=== PATIENT | female | born 1970 | race Caucasian/White ===

== ENCOUNTER 2022-10-15 17:13 | Emergency (ER) | payer OTHER, SELFPAY ==
[2022-10-15] VITALS (15 sets, daily range): BP systolic 126–141; BP diastolic 79–97; PULSE 65–107; RESP 16; TEMP 36.2; O2SAT 99–100; BMI 37.1
--- NOTE | 2022-10-15 18:51 | ED.GENADULT ---
HPI - General Adult General Chief complaint: Chest Pain <Sandor Sánchez MD - Last Filed: 10/19/22 11:50> Stated complaint: Chest pain on upper right side <Sandor Sánchez MD - Last Filed: 10/19/22 11:50> Time Seen by Provider: 10/15/22 17:17 <Sandor Sánchez MD - Last Filed: 10/19/22 11:50> Source: patient <Sandor Sánchez MD - Last Filed: 10/19/22 11:50> History of Present Illness HPI narrative: Patient is a 52-year-old woman here for evaluation of right-sided chest pain. She says last week she developed some pain near the right scapula which she thought was muscular. She was using a tennis ball rule that out. On Saturday, 2 days ago, she developed some pain in the right chest which she initially did not think too much about. It was intermittent, not bothering her very much. Earlier today it seemed to get a little more persistent, and by this afternoon it was steady. It is mild in intensity, she has not needed anything for pain. It is a little bit pleuritic although she has not felt short of breath. It does bother her more when she sits straight up. It is not worsened by exertion. She is concerned because her mother of pulmonary embolism. She does have a protein C deficiency. She was on Eliquis after a hip replacement a couple of years ago but does not generally maintain on blood thinners. Her left foot has felt numb on and off today but she has not noted any other unusual leg pain or swelling. No fevers or cough. General health is otherwise good. She does not smoke, rare alcohol. <Sandor Sánchez MD - Last Filed: 10/19/22 11:50> Related Data Home medications: Home Medications Medication Instructions Recorded Confirmed diphenhydramine HCl 25 mg tablet 25 mg PO QHS 10/15/22 10/15/22 (Banophen) melatonin 3 mg capsule 3 mg PO DAILY 10/15/22 10/15/22 <Sandor Sánchez MD - Last Filed: 10/19/22 11:50> Allergies/adverse reactions: Allergies Allergy/AdvReac Type Severity Reaction Status Date / Time bacitracin Allergy Intermediate Rash Verified 10/15/22 17:49 [From Neosporin ([id number])] neomycin Allergy Intermediate Rash Verified 10/15/22 17:49 [From Neosporin ([id number])] polymyxin B Allergy Intermediate Rash Verified 10/15/22 17:49 [From Neosporin (fgy-[id number])] ibuprofen Allergy Mild Hypertensio Verified 10/15/22 17:49 n Opioids - Morphine Analogues Allergy Mild Nausea Verified 10/15/22 17:49 pseudoephedrine Allergy Mild Numbness Verified 10/15/22 17:49 nickel Allergy Mild Rash Uncoded 10/15/22 17:49 <Sandor Sánchez MD - Last Filed: 10/19/22 11:50> Review of Systems Status of ROS: Reports: 10 or more systems reviewed and unremarkable except as noted in History and below <Sandor Sánchez MD - Last Filed: 10/19/22 11:50> PFSH PFSH Social History: Social History Smoking Status: Never smoker Non-prescribed substance use: denies use service: No <Sandor Sánchez MD - Last Filed: 10/19/22 11:50> Exam Narrative: Exam Narrative: Vital signs as noted above. In general, an alert, well-appearing patient. Head: Normocephalic, atraumatic. Eyes: Pupils are equal reactive. Extraocular movements are full. Conjunctivae are normal. ENT: Mucous membranes are moist. Throat is normal. Neck: Supple without lymphadenopathy. Heart: Regular rate and rhythm. No murmur or rub. Lungs: Clear bilaterally. No increased work of breathing, crackles or wheezes. Chest wall is nontender to palpation. No rash. Back: She has reproducible muscular tenderness around the scapula on the right. Abdomen: Soft and nontender. No organomegaly. Extremities: Well perfused. No edema. No calf tenderness. Pulses intact. Neurologic: Patient is alert and oriented to person and place. Speech is fluent. Face is symmetric. Moves all extremities equally. Affect: Normal. Skin: Warm and dry. Well perfused. <Sandor Sánchez MD - Last Filed: 10/19/22 11:50> Const: Vital Signs, click to edit/add: Vital Signs - 24 hr 10/15/22 17:51 10/15/22 18:20 10/15/22 18:30 Temperature 97.1 F L Pulse Rate 66 69 Pulse Rate [Right Pulse Oximeter] 107 H Respiratory Rate 16 Blood Pressure Blood Pressure [Ri ght Upper Arm] 134/97 H Pulse Oximetry 99 99 Oxygen Delivery Me thod Room Air 10/15/22 18:32 10/15/22 18:33 10/15/22 19:05 Temperature Pulse Rate 67 65 71 Pulse Rate [Right Pulse Oximeter] Respiratory Rate Blood Pressure 126/79 Blood Pressure [Ri ght Upper Arm] Pulse Oximetry 99 99 99 Oxygen Delivery Me thod Room Air 10/15/22 19:06 10/15/22 19:30 10/15/22 19:32 Temperature Pulse Rate 69 73 68 Pulse Rate [Right Pulse Oximeter] Respiratory Rate Blood Pressure 141/87 H Blood Pressure [Ri ght Upper Arm] Pulse Oximetry 100 100 100 Oxygen Delivery Me thod Room Air 10/15/22 19:33 10/15/22 20:00 10/15/22 20:02 Temperature Pulse Rate 65 72 67 Pulse Rate [Right Pulse Oximeter] Respiratory Rate 16 Blood Pressure 131/85 Blood Pressure [Ri ght Upper Arm] Pulse Oximetry 99 100 100 Oxygen Delivery Me thod Room Air 10/15/22 20:42 10/15/22 21:00 10/15/22 21:02 Temperature Pulse Rate 72 73 72 Pulse Rate [Right Pulse Oximeter] Respiratory Rate Blood Pressure 131/80 Blood Pressure [Ri ght Upper Arm] Pulse Oximetry 100 99 100 Oxygen Delivery Me thod <Sandor Sánchez MD - Last Filed: 10/19/22 11:50> Vital Signs, click to edit/add: Vital Signs - 24 hr 10/15/22 17:51 10/15/22 18:20 10/15/22 18:30 Temperature 97.1 F L Pulse Rate 66 69 Pulse Rate [Right Pulse Oximeter] 107 H Respiratory Rate 16 Blood Pressure Blood Pressure [Ri ght Upper Arm] 134/97 H Pulse Oximetry 99 99 Oxygen Delivery Me thod Room Air 10/15/22 18:32 10/15/22 18:33 10/15/22 19:05 Temperature Pulse Rate 67 65 71 Pulse Rate [Right Pulse Oximeter] Respiratory Rate Blood Pressure 126/79 Blood Pressure [Ri ght Upper Arm] Pulse Oximetry 99 99 99 Oxygen Delivery Me thod Room Air 10/15/22 19:06 10/15/22 19:30 10/15/22 19:32 Temperature Pulse Rate 69 73 68 Pulse Rate [Right Pulse Oximeter] Respiratory Rate Blood Pressure 141/87 H Blood Pressure [Ri ght Upper Arm] Pulse Oximetry 100 100 100 Oxygen Delivery Me thod Room Air 10/15/22 19:33 10/15/22 20:00 10/15/22 20:02 Temperature Pulse Rate 65 72 67 Pulse Rate [Right Pulse Oximeter] Respiratory Rate 16 Blood Pressure 131/85 Blood Pressure [Ri ght Upper Arm] Pulse Oximetry 99 100 100 Oxygen Delivery Me thod Room Air 10/15/22 20:42 10/15/22 21:00 10/15/22 21:02 Temperature Pulse Rate 72 73 72 Pulse Rate [Right Pulse Oximeter] Respiratory Rate Blood Pressure 131/80 Blood Pressure [Ri ght Upper Arm] Pulse Oximetry 100 99 100 Oxygen Delivery Me thod <Tera Coronado MD - Last Filed: 10/15/22 23:40> Documenting provider has reviewed patient's vital signs: yes <Sandor Sánchez MD - Last Filed: 10/19/22 11:50> Course Course Hospital Course: On arrival, patient had an EKG which by my review showed a normal sinus rhythm, ventricular rate of 67 beats per minute. No acute ST segment changes. Diagnostic considerations include musculoskeletal chest wall pain, PE, pneumonia, pneumothorax, shingles, biliary colic or cholecystitis, pancreatitis, gastritis or peptic ulcer disease. I would doubt that this is cardiac in nature, it does not sound like pericarditis, do not see any evidence of ST elevation or VA depression on her EKG but I will do a troponin. We will go ahead and do a D-dimer to screen for PE given her family history. She is not hypoxic or tachycardic. Depending on the results of the D-dimer will either do a CT or a chest x-ray. Other labs pending at this time. D-dimer mildly elevated at 0.56, given patient's age this is just above the cutoff. Given her family history and personal history of protein C deficiency, I think the safest course of action is just to do a CT scan of the chest. This is been ordered. Results are pending. Signed out to Dr. Coronado for results and final disposition. CHEST CT DID NOT SHOW ANY EVIDENCE OF A PULMONARY EMBOLISM, COMMUNITY THESE RESULTS WITH HER. WE WILL FOLLOW THE PREVIOUS DOCTOR'S DISCHARGE PLAN. <Sandor Snáchez MD - Last Filed: 10/19/22 11:50> Vital Signs Vital signs: Initial Vital Signs Temperature 97.1 F L 10/15/22 17:51 Temperature Source Temporal Artery Scan 10/15/22 17:51 Pulse Rate 107 H 10/15/22 17:51 Respiratory Rate 16 10/15/22 17:51 Blood Pressure 134/97 H 10/15/22 17:51 Blood Pressure Mean 109 10/15/22 17:51 Blood Pressure Position Sitting 10/15/22 17:51 Oxygen Delivery Method 10/15/22 17:51 Vital Signs Temperature 97.1 F L 10/15/22 17:51 Pulse Rate 107 H 10/15/22 17:51 Respiratory Rate 16 10/15/22 17:51 Blood Pressure 134/97 H 10/15/22 17:51 Oxygen Delivery Method 10/15/22 17:51 Temperature 97.1 F L 10/15/22 17:51 Pulse Rate 72 10/15/22 21:02 Respiratory Rate 16 10/15/22 20:02 Blood Pressure 131/80 10/15/22 21:02 Pulse Oximetry 100 10/15/22 21:02 Oxygen Delivery Method 10/15/22 20:02 <Sandor Sánchez MD - Last Filed: 10/19/22 11:50> Initial Vital Signs Temperature 97.1 F L 10/15/22 17:51 Temperature Source Temporal Artery Scan 10/15/22 17:51 Pulse Rate 107 H 10/15/22 17:51 Respiratory Rate 16 10/15/22 17:51 Blood Pressure 134/97 H 10/15/22 17:51 Blood Pressure Mean 109 10/15/22 17:51 Blood Pressure Position Sitting 10/15/22 17:51 Oxygen Delivery Method 10/15/22 17:51 Vital Signs Temperature 97.1 F L 10/15/22 17:51 Pulse Rate 107 H 10/15/22 17:51 Respiratory Rate 16 10/15/22 17:51 Blood Pressure 134/97 H 10/15/22 17:51 Oxygen Delivery Method 10/15/22 17:51 Temperature 97.1 F L 10/15/22 17:51 Pulse Rate 72 10/15/22 21:02 Respiratory Rate 16 10/15/22 20:02 Blood Pressure 131/80 10/15/22 21:02 Pulse Oximetry 100 10/15/22 21:02 Oxygen Delivery Method 10/15/22 20:02 <Tera Coronado MD - Last Filed: 10/15/22 23:40> Medical Decision Making Lab Data Labs: Lab Results 10/15/22 10/15/22 10/15/22 Range/Units 18:47 18:54 18:54 WBC 8.38 (4.50-11.00) K/uL RBC 4.66 (4.00-5.20) m/uL Hgb 11.8 L (12.0-16.0) gm/dL Hct 37.3 (33.0-51.0) % MCV 80 (80-100) fL MCH 25 L (26-34) pg MCHC 32 (32-36) gm/dL RDW Coeff of Elisabeth 14.9 (11.5-15.5) % Plt Count 429 (140-440) K/uL Neut % (Auto) 55.6 (42.0-72.0) % Lymph % (Auto) 34.7 (20-44) % Payette % (Auto) 7.4 (0.0-11.0) % Eos % (Auto) 2.0 (0.0-7.0) % Baso % (Auto) 0.2 (0.0-3.0) % Neut # (Auto) 4.65 (1.7-7.0) K/uL Lymph # (Auto) 2.91 H (0.90-2.90) K/uL Payette # (Auto) 0.60 (0.00-0.90) K/UL Eos # (Auto) 0.17 (0.00-0.50) K/uL Baso # (Auto) 0.02 (0.00-0.30) K/uL D-Dimer Quant (PE/DVT) (0.00-0.50) ug/ml Sodium 139 (135-149) mmol/L Potassium 4.4 (3.6-5.1) mmol/L Chloride 106 (96-114) mmol/L Carbon Dioxide 27 (20-32) mmol/L BUN 14 (7-30) mg/dL Creatinine 0.7 (0.5-1.5) mg/dL Estimated Creat Clear 117.94 Estimated GFR 105 ml/min Glucose 110 (60-115) mg/dL Calcium 9.0 (8.4-10.6) mg/dL Total Bilirubin 0.3 (0.1-1.5) mg/dL Direct Bilirubin 0.3 (0.0-0.5) mg/dL AST 18 (12-35) U/L ALT 16 (4-35) U/L Alkaline Phosphatase 75 (40-150) U/L C-Reactive Protein (0.5-1.0) mg/dL NT-Pro-B Natriuret Pep pg/mL Total Protein 7.1 (6.0-8.3) g/dL Albumin 4.3 (3.3-5.0) g/dL Lipase (23-300) U/L POC Troponin I 0.00 L (0.01-0.04) ng/ml 10/15/22 10/15/22 Range/Units 18:54 18:54 WBC (4.50-11.00) K/uL RBC (4.00-5.20) m/uL Hgb (12.0-16.0) gm/dL Hct (33.0-51.0) % MCV (80-100) fL MCH (26-34) pg MCHC (32-36) gm/dL RDW Coeff of Elisabeth (11.5-15.5) % Plt Count (140-440) K/uL Neut % (Auto) (42.0-72.0) % Lymph % (Auto) (20-44) % Payette % (Auto) (0.0-11.0) % Eos % (Auto) (0.0-7.0) % Baso % (Auto) (0.0-3.0) % Neut # (Auto) (1.7-7.0) K/uL Lymph # (Auto) (0.90-2.90) K/uL Payette # (Auto) (0.00-0.90) K/UL Eos # (Auto) (0.00-0.50) K/uL Baso # (Auto) (0.00-0.30) K/uL D-Dimer Quant (PE/DVT) 0.56 H (0.00-0.50) ug/ml Sodium (135-149) mmol/L Potassium (3.6-5.1) mmol/L Chloride (96-114) mmol/L Carbon Dioxide (20-32) mmol/L BUN (7-30) mg/dL Creatinine (0.5-1.5) mg/dL Estimated Creat Clear Estimated GFR ml/min Glucose (60-115) mg/dL Calcium (8.4-10.6) mg/dL Total Bilirubin (0.1-1.5) mg/dL Direct Bilirubin (0.0-0.5) mg/dL AST (12-35) U/L ALT (4-35) U/L Alkaline Phosphatase (40-150) U/L C-Reactive Protein 1.9 H (0.5-1.0) mg/dL NT-Pro-B Natriuret Pep 33 pg/mL Total Protein (6.0-8.3) g/dL Albumin (3.3-5.0) g/dL Lipase 35 (23-300) U/L POC Troponin I (0.01-0.04) ng/ml <Sandor Sánchez MD - Last Filed: 10/19/22 11:50> Lab Results 10/15/22 10/15/22 10/15/22 Range/Units 18:47 18:54 18:54 WBC 8.38 (4.50-11.00) K/uL RBC 4.66 (4.00-5.20) m/uL Hgb 11.8 L (12.0-16.0) gm/dL Hct 37.3 (33.0-51.0) % MCV 80 (80-100) fL MCH 25 L (26-34) pg MCHC 32 (32-36) gm/dL RDW Coeff of Elisabeth 14.9 (11.5-15.5) % Plt Count 429 (140-440) K/uL Neut % (Auto) 55.6 (42.0-72.0) % Lymph % (Auto) 34.7 (20-44) % Payette % (Auto) 7.4 (0.0-11.0) % Eos % (Auto) 2.0 (0.0-7.0) % Baso % (Auto) 0.2 (0.0-3.0) % Neut # (Auto) 4.65 (1.7-7.0) K/uL Lymph # (Auto) 2.91 H (0.90-2.90) K/uL Payette # (Auto) 0.60 (0.00-0.90) K/UL Eos # (Auto) 0.17 (0.00-0.50) K/uL Baso # (Auto) 0.02 (0.00-0.30) K/uL D-Dimer Quant (PE/DVT) (0.00-0.50) ug/ml Sodium 139 (135-149) mmol/L Potassium 4.4 (3.6-5.1) mmol/L Chloride 106 (96-114) mmol/L Carbon Dioxide 27 (20-32) mmol/L BUN 14 (7-30) mg/dL Creatinine 0.7 (0.5-1.5) mg/dL Estimated Creat Clear 117.94 Estimated GFR 105 ml/min Glucose 110 (60-115) mg/dL Calcium 9.0 (8.4-10.6) mg/dL Total Bilirubin 0.3 (0.1-1.5) mg/dL Direct Bilirubin 0.3 (0.0-0.5) mg/dL AST 18 (12-35) U/L ALT 16 (4-35) U/L Alkaline Phosphatase 75 (40-150) U/L C-Reactive Protein (0.5-1.0) mg/dL NT-Pro-B Natriuret Pep pg/mL Total Protein 7.1 (6.0-8.3) g/dL Albumin 4.3 (3.3-5.0) g/dL Lipase (23-300) U/L POC Troponin I 0.00 L (0.01-0.04) ng/ml 10/15/22 10/15/22 Range/Units 18:54 18:54 WBC (4.50-11.00) K/uL RBC (4.00-5.20) m/uL Hgb (12.0-16.0) gm/dL Hct (33.0-51.0) % MCV (80-100) fL MCH (26-34) pg MCHC (32-36) gm/dL RDW Coeff of Elisabeth (11.5-15.5) % Plt Count (140-440) K/uL Neut % (Auto) (42.0-72.0) % Lymph % (Auto) (20-44) % Payette % (Auto) (0.0-11.0) % Eos % (Auto) (0.0-7.0) % Baso % (Auto) (0.0-3.0) % Neut # (Auto) (1.7-7.0) K/uL Lymph # (Auto) (0.90-2.90) K/uL Payette # (Auto) (0.00-0.90) K/UL Eos # (Auto) (0.00-0.50) K/uL Baso # (Auto) (0.00-0.30) K/uL D-Dimer Quant (PE/DVT) 0.56 H (0.00-0.50) ug/ml Sodium (135-149) mmol/L Potassium (3.6-5.1) mmol/L Chloride (96-114) mmol/L Carbon Dioxide (20-32) mmol/L BUN (7-30) mg/dL Creatinine (0.5-1.5) mg/dL Estimated Creat Clear Estimated GFR ml/min Glucose (60-115) mg/dL Calcium (8.4-10.6) mg/dL Total Bilirubin (0.1-1.5) mg/dL Direct Bilirubin (0.0-0.5) mg/dL AST (12-35) U/L ALT (4-35) U/L Alkaline Phosphatase (40-150) U/L C-Reactive Protein 1.9 H (0.5-1.0) mg/dL NT-Pro-B Natriuret Pep 33 pg/mL Total Protein (6.0-8.3) g/dL Albumin (3.3-5.0) g/dL Lipase 35 (23-300) U/L POC Troponin I (0.01-0.04) ng/ml <Tera Coronado MD - Last Filed: 10/15/22 23:40> Imaging Data CT scan - chest: Attestation: I have reviewed the pertinent imaging results. <Tera Coronado MD - Last Filed: 10/15/22 23:40> Radiologist's impression: Patient: SANDOR REILLY Facility:?[facility] Patient ID:?[id number] Site Patient ID:?[id number]. Site :?[id number] Study:?CT Chest Angio PE W/ ISOVUE 370 95CC-10/15/2022 8:46:38 PM Ordering Physician:Kerry Carrero Final Report: INDICATION: Chest pain, hypercoagulability, elevated D-dimer. TECHNIQUE: CT chest PE was acquired with 95 cc Isovue 370 IV contrast. COMPARISON: None FINDINGS: Pulmonary Arteries: No CT evidence of pulmonary thromboembolic disease. No pulmonary hypertension or right ventricular strain. Heart and Mediastinum: The visualized portions of the thyroid are normal. No axillary or supraclavicular lymphadenopathy. No mediastinal, hilar or retrocrural lymphadenopathy. Normal heart size. Normal caliber aorta. Lungs and Airways: No mass or consolidation. No endoluminal lesion. Pleura: The pleural spaces are normal. Abdomen: The visualized upper abdominal organs are unremarkable. Bones and soft tissues: The skeletal structures and soft tissues of the chest wall are unremarkable. IMPRESSION: 1. No CT evidence of pulmonary thromboembolic disease. 2. No intrathoracic mass or consolidation. Please note that all CT scans at this facility use dose modulation, iterative reconstruction, and/or weight-based dosing when appropriate to reduce radiation dose to as low as reasonably achievable. Dictated by Jostin Issa MD @ 10/15/2022 9:10:15 PM (Electronic Signature) <Tera Coronado MD - Last Filed: 10/15/22 23:40> Discharge Plan Discharge Clinical Impression: Right-sided chest pain <Sandor Sánchez MD - Last Filed: 10/19/22 11:50> Patient Disposition: Home, Self-Care <Sandor Sánchez MD - Last Filed: 10/19/22 11:50> Condition: Stable <Sandor Sánchez MD - Last Filed: 10/19/22 11:50> Instructions: Chest Wall Pain (ED) <Sandor Sánchez MD - Last Filed: 10/19/22 11:50> Additional Instructions: Tylenol 1000 mg 3 times daily as needed for pain. Ice and/or heat. Return for severe uncontrolled pain, fever, shortness of breath, cough or other worsening. Primary care follow-up if no improvement over the next 1-2 weeks. <Sandor Sánchez MD - Last Filed: 10/19/22 11:50> Prescriptions: No Action melatonin 3 mg capsule 3 mg PO DAILY diphenhydramine HCl [Banophen] 25 mg tablet 25 mg PO QHS <Sandor Sánchez MD - Last Filed: 10/19/22 11:50> Stand Alone Forms: [facility] Info Instructions <Sandor Sánchez MD - Last Filed: 10/19/22 11:50>
[2022-10-15 19:07] LABS: Basophils Absolute Auto 0.02 K/uL (0.00-0.30); Basophils Percent Auto 0.2 % (0.0-3.0); Eosinophils Absolute Auto 0.17 K/uL (0.00-0.50); Hematocrit 37.3 % (33.0-51.0); Hemoglobin* 11.8 gm/dL (12.0-16.0); Immature Granulocytes Abs Auto 0.01 K/uL (0.00-0.30); Immature Granulocytes Pct Auto 0.1 %; Lymphocytes Absolute Auto 2.91 K/uL (0.90-2.90); Lymphocytes Percent Auto 34.7 % (20-44); Mean Corpuscular HGB Conc 32 gm/dL (32-36); Mean Corpuscular Hemoglobin 25 pg (26-34); Mean Corpuscular Volume 80 fL (80-100); Monocytes Percent Auto 7.4 % (0.0-11.0); Neutrophils Absolute Auto 4.65 K/uL (1.7-7.0); Neutrophils Percent Auto 55.6 % (42.0-72.0); Platelet Count* 429 K/uL (140-440); RDW Coefficient of Variation % 14.9 % (11.5-15.5); Red Blood Count 4.66 m/uL (4.00-5.20); White Blood Count* 8.38 K/uL (4.50-11.00)
[2022-10-15 19:14] LABS: Slide Review Reflex No
[2022-10-15 19:38] LABS: Albumin* 4.3 g/dL (3.3-5.0); Chloride* 106 mmol/L (96-114)
[2022-10-15 19:39] LABS: D Dimer Quantitative* 0.56 ug/ml (0.00-0.50); Potassium* 4.4 mmol/L (3.6-5.1); Sodium* 139 mmol/L (135-149)
[2022-10-15 19:41] LABS: Aspartate Amino Transferase* 18 U/L (12-35); Bilirubin Direct* 0.3 mg/dL (0.0-0.5); Bilirubin Total* 0.3 mg/dL (0.1-1.5); Blood Urea Nitrogen* 14 mg/dL (7-30); Carbon Dioxide* 27 mmol/L (20-32); Creatinine* 0.7 mg/dL (0.5-1.5); Est. Creatinine Clearance* 117.94; Estimated Glomerular Filt Rate 105 ml/min; Total Protein* 7.1 g/dL (6.0-8.3)
[2022-10-15 19:42] LABS: Alanine Aminotransferase* 16 U/L (4-35); Alkaline Phosphatase* 75 U/L (40-150); Glucose* 110 mg/dL (60-115); Lipase* 35 U/L (23-300)
[2022-10-15 19:46] LABS: C Reactive Protein* 1.9 mg/dL (0.5-1.0); NT Pro B Type NatriureticPept* 33 pg/mL
--- NOTE | 2022-10-15 19:49 | CRLHL7_ITS ---
For Patients: As a result of the Century Cures Act, medical imaging exams and procedure reports are released immediately into your electronic medical record. You may view this report before your referring provider. If you have questions, please contact your health care provider. INDICATION: Chest pain, hypercoagulability, elevated D-dimer. TECHNIQUE: CT chest PE was acquired with 95 cc Isovue 370 IV contrast. COMPARISON: None FINDINGS: Pulmonary Arteries: No CT evidence of pulmonary thromboembolic disease. No pulmonary hypertension or right ventricular strain. Heart and Mediastinum: The visualized portions of the thyroid are normal. No axillary or supraclavicular lymphadenopathy. No mediastinal, hilar or retrocrural lymphadenopathy. Normal heart size. Normal caliber aorta. Lungs and Airways: No mass or consolidation. No endoluminal lesion. Pleura: The pleural spaces are normal. Abdomen: The visualized upper abdominal organs are unremarkable. Bones and soft tissues: The skeletal structures and soft tissues of the chest wall are unremarkable. IMPRESSION: 1. No CT evidence of pulmonary thromboembolic disease. 2. No intrathoracic mass or consolidation. Please note that all CT scans at this facility use dose modulation, iterative reconstruction, and/or weight-based dosing when appropriate to reduce radiation dose to as low as reasonably achievable. Dictated by Jostin Issa MD @ 10/15/2022 9:10:15 PM (Electronically Signed)
== END 2022-10-15 21:38 | disposition home or self-care (01) ==
PROVIDERS: Emergency Medicine; Emergency Provider Family Medicine
DX: R07.89 Other chest pain (principal)
CPT/HCPCS: 36415; 71260; 80048; 80076; 83690; 83880; 84484; 85025; 85379; 86140; 93005; 99284; 99285; Q9967

== ENCOUNTER 2024-02-20 17:37 | Emergency (ER) | payer OTHER, SELFPAY ==
[2024-02-20 17:43] VITALS: BP 161/100; PULSE 79; RESP 16; TEMP 36.2; O2SAT 96; BMI 38.0
--- NOTE | 2024-02-20 18:21 | ED_ITS ---
HPI - General Adult General Chief complaint: Unspecified Complaint, Adult Stated complaint: possibly has rabies Time Seen by Provider: 02/20/24 17:39 History of Present Illness HPI narrative: This 53-year-old female comes in with concern about an exposure to rabies from a bat that was in her home. This occurred about a week ago. She states that she woke up in the morning with a little scratch on her right forearm and did not know how that it happened. The next night she saw a bat in her room. The she is renting this facility and her landlord captured the bat disposed of it. It is not available for testing at this time. The patient states that this is the 3rd time that a bat has been in her home and she did have the immune globulin and vaccine series almost 2 years ago with the previous encounter. She states that she feels normal at this time. Related Data Home Medications ?Medication ?Instructions ?Recorded ?Confirmed diphenhydramine HCl 25 mg tablet 25 mg PO QHS 10/15/22 10/15/22 (Banophen) melatonin 3 mg capsule 3 mg PO DAILY 10/15/22 10/15/22 Allergies Allergy/AdvReac Type Severity Reaction Status Date / Time bacitracin Allergy Intermediate Rash Verified 10/15/22 17:49 [From Neosporin ([id number])] neomycin Allergy Intermediate Rash Verified 10/15/22 17:49 [From Neosporin ([id number])] polymyxin B Allergy Intermediate Rash Verified 10/15/22 17:49 [From Neosporin ([id number])] ibuprofen Allergy Mild Hypertensio Verified 10/15/22 17:49 n Opioids - Morphine Analogues Allergy Mild Nausea Verified 10/15/22 17:49 pseudoephedrine Allergy Mild Numbness Verified 10/15/22 17:49 nickel Allergy Mild Rash Uncoded 10/15/22 17:49 Review of Systems Status of ROS: Reports: 10 or more systems reviewed and unremarkable except as noted in History and below Narrative: Constitutional: No fevers, no weight gain or loss. Eyes: No discharge. No vision changes. HENT: No congestion, no sore throat, no ear pain. Cardiovascular: No chest pain, no palpitations. Respiratory: No shortness of breath, no wheezes, no cough. Gastrointestinal: No abdominal pain, no vomiting, no diarrhea. Genitourinary: No dysuria, no hematuria. Musculoskeletal: Normal range of motion. Skin: No rashes, no pruritis. Neurological: No dizziness, weakness, sensory change, speech change. Endo/Heme/Allergies: No bruising or bleeding. No polydipsia. Pysch: no suicidality, no anxiety, no insomnia. All other systems reviewed and are negative. [facility] Social History Smoking Status: Never smoker Non-prescribed substance use: denies use service: No Exam Narrative: Exam Narrative: Constitutional: Well-developed, well-nourished, no acute distress. HEENT: Normocephalic, atraumatic. Neck: Normal range of motion. Nontender. Supple. Heart: Intact distal pulses. Lungs: No chest discomfort. No wheezes, rhonchi, or rales. Abdomen: Nontender. Back: Normal range of motion. Extremities: Normal range of motion. Small superficial scratch on her right forearm with no surrounding erythema. The patient states that it seemed to be a bit of a whitish color around it for a few days after she 1st noticed it her Skin: Intact. No rash. Warm. No erythema or pallor. Neurologic: No altered sensation. No weakness. Alert and oriented. Psychiatric: No suicidality. No anxiety or depression. No insomnia. Nursing notes and vitals signs are reviewed. Const: Vital Signs, click to edit/add: Vital Signs - 24 hr 02/20/24 17:43 Temperature 97.1 F L Pulse Rate [Pulse Oximeter] 79 Respiratory Rate 16 Blood Pressure [Ri ght Upper Arm] 161/100 H Pulse Oximetry 96 Course Vital Signs Vital signs: Initial Vital Signs Temperature 97.1 F L 02/20/24 17:43 Temperature Source Temporal Artery Scan 02/20/24 17:43 Pulse Rate 79 02/20/24 17:43 Respiratory Rate 16 02/20/24 17:43 Blood Pressure 161/100 H 02/20/24 17:43 Blood Pressure Mean 120 H 02/20/24 17:43 Blood Pressure Position Sitting 02/20/24 17:43 Pulse Oximetry 96 02/20/24 17:43 Vital Signs Temperature 97.1 F L 02/20/24 17:43 Pulse Rate 79 02/20/24 17:43 Respiratory Rate 16 02/20/24 17:43 Blood Pressure 161/100 H 02/20/24 17:43 Pulse Oximetry 96 02/20/24 17:43 Temperature 97.1 F L 02/20/24 17:43 Pulse Rate 79 02/20/24 17:43 Respiratory Rate 16 02/20/24 17:43 Blood Pressure 161/100 H 02/20/24 17:43 Pulse Oximetry 96 02/20/24 17:43 Medical Decision Making [facility] Narrative Medical decision making narrative: This patient has enough risk with possible exposure to a bat that she would benefit from rabies immune globulin and vaccine series. This was ordered for her. Arrangements are made for her to return on day 3, day 7, and day 14 for completing the series. Discharge Plan Discharge Clinical Impression: Rabies exposure Patient Disposition: Home, Self-Care Condition: Stable Additional Instructions: Return to emergency department to complete the rabies series. Return on February 22, February 26, and March 05. Follow up with MD otherwise as needed. Prescriptions: No Action melatonin 3 mg capsule 3 mg PO DAILY diphenhydramine HCl [Banophen] 25 mg tablet 25 mg PO QHS Follow Up/Referrals: Provider,Not a Local [Primary Care Provider] - Stand Alone Forms: [employer] [employer] Info Instructions
--- OUTSIDE RECORDS SUMMARY | 2024-02-20 18:47 | XMS_ITS | Clinical Summary ---
Author Organization [facility] Address [address] [place] [address] Care Team Providers Care Bag Inspector Name Role Phone Inge Petit APRN, C.NBrooke Primary Care Provi lenore Source Comments Patient records contain information from all sites at [facility]. For routine questions regarding patient records, call [phone] during business hours, M-F 8:00 AM - 5:00 PM Central Time. Record requests for emergency care only can be directed to [phone] at any time.[facility] Allergies Active Allergy Reactions Criticality Noted Date Comments Ibuprofen Edema (Reselect Reaction) 10/18/2020 In legs and blood pressure goes up Bycdrcon-Kcfrhxgxlj-Xwtgh yxin Rash Low 12/03/2014 Nickel Rash,Edema (Reselect Reaction) 10/18/2020 Oxycodone Other (see comments) 04/04/2021 Pseudoephedrine Other (see comments) 10/18/2020 Numbness in arms Medications Medication Sig Dispensed Refills Start Date End Date Status multivitamin tablet Take 1 tablet by mouth. Active acetaminophen (TYLENOL) 500 mg capsule Take 2 capsules (1,000 mg total) by mouth 2 (two) times a day as needed for pain for up to 20 days. 80 capsule 04/05/2021 Active diphenhydrAMINE (BENADRYL) 25 mg tablet Take 1 tablet (25 mg total) by mouth at bedtime as needed for sleep. 30 tablet 1 04/09/2021 Active Additional Information Patient taking differently:25 mg oralDaily at bedtime, Reported on 10/15/2023 naproxen sodium 220 mg capsule Take 1 tablet by mouth as needed. 07/06/2021 Active buPROPion (WELLBUTRIN SR) 150 mg 12 hr tabletIndications :Anxiety,Depressi on Major Recurrent Moderate (HCC) Take 1 tablet (150 mg total) by mouth 2 (two) times a day. 180 tablet 3 10/15/2023 10/14/2024 Active Active Problems Problem Noted Date Diagnosed Date Aftercare Total Hip Arthroplasty 04/22/2021 Overview: Total hip arthroplasty left 04/03/2021. Last Assessment & Plan: Wound healed well and she participated in physical therapy and occupational therapy. She has met her therapy goals. Edema 04/22/2021 Overview: Lower extremity edema multifactorial and not felt related to venous thromboembolism. Last Assessment & Plan: This was problematic and progressed despite mobilization, elevation, compression. Renal function remained normal and she was started on Lasix to promote diuresis. Palpitations 03/08/2021 Primary Osteoarthritis Hip Left 11/09/2020 Overview: Added automatically from request for surgery [id number] Morbid Severe Obesity Due To Excess Calories Elevated Blood Pressure Without Hypertension 07/2018 Overview: Last Assessment & Plan: - Elevated today in setting of pain. - BMP, HbA1c, lipid panel pending for risk stratification. Pain Hip Left 01/31/2018 Overview: Last Assessment & Plan: - Lumbar XR with mild multilevel DDD and severe facet arthropathy, worst L4-L5 and L5-S1. Left hip with severe OA. - Improved after PT. - No longer interested in Sports Med referral. - Continue home exercises and Ibuprofen prn. Pain Low Back Unspecified 07/24/2017 PreDiabetes 09/06/2016 Overview: Last Assessment & Plan: Lab Results Component Value Date A1C 6.4 01/31/2018 - Referred to nutrition. - Repeat pending. Depressive Disorder 02/28/2016 Overview: Last Assessment & Plan: - Improving with medication and therapy. - Continue Wellbutrin SR 150 mg BID. - FU 3 month. 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 - No intervention necessary. Last Assessment & Plan: She was very conscientious about mobilization and anticoagulation to prevent DVT. Thrombocytosis Unspecified 08/22/2015 Overview: Last Assessment & Plan: - Mild thrombocytosis and microcytosis per outside records. - Thought to be due to mild iron-deficiency anemia. - On previous labs 02/28/16, continues to have thrombocytosis although no anemia. - Offered referral to hem-onc, but patient declines. - Re-check CBC today. Embolus Pulmonary Family History 05/04/2014 Overview: Mother at age 48 after orthopedic surgery. Last Assessment & Plan: DVT prophylaxis after total hip arthroplasty will continue for 4 weeks total. 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 Resolved Problems Problem Noted Date Diagnosed Date Resolved Date Thrombocythemia Essential Hemorrhagic 10/15/2023 10/15/2023 Anemia 03/12/2011 03/08/2021 Fracture Radius Distal Closed Initial 01/27/2010 03/08/2021 General Medical Exam (GME) NOS 01/27/2010 03/08/2021 Other Specified Coagulation Defects 01/27/2010 10/15/2023 Overview: Primary Hypercoagulable State Encounters Date Type Department Care Team Description 12/13/2023 2:30 PM CDT Office Visit Department of [facility], in [place], [place] [address] [place] [phone] Inge Petit APRN, C.N.P. Preoperative Exam (Primary Dx) 12/12/2023 Clinical Communication Department of [facility], [facility], in [place], [place] [address] [place] [phone] Inge Petit APRN, C.N.P. 11/26/2023 Orders Only [facility] Inge Petit APRN, C.N.P. Screening Examination Diabetes Mellitus 11/26/2023 Orders Only Division of Gastroenterology in [place], [place] [address] [place] [address] Thaddeus Rojas M.D. Genetic Susceptibility To Disease from Last 3 Months Immunizations Name Administration Dates Next Due HepB Adult (HEPLISAV-B) 10/15/2023 Influenza, Injectable, Mdck, Quadrivalent 07/23/2022 Influenza, Unspecified 07/22/2019 RZV (SHINGRIX) 10/15/2023 Rabies (Rabavert) 05/21/2022, 2,05/10/2022,2021 SARS-COV-2 (COVID-19) - PFIZ ER (Discontinued)(12 years or older) 08/07/2021,01/13/2021,12/21/2020 Tdap 10/15/2023,04/23/2014 influenza vaccine quad (FLUZONE/FLUARIX) (6 months and older)(PF) 07/19/2023,07/26/2021,06/06/2020,2017 Family History Medical History Relation Name Comments Cardiomyopathy Brother a ge 31 Heart Father Raz pacemaker, TAVR Other cancer Father Raz Hodgkins Diseas e Skin cancer Father Raz on going-wells Colon cancer Maternal Grandfather Citlaly d Breast cancer Maternal Grandmother Corazon 65 PE - Pulmonary embolism Mother pass ed away age 48 Heart attack Uncle maternal uncle Relation Name Status Comments Brother Father Raz Alive Maternal Grandfather Citlaly Maternal Grandmother Corazon Mother Uncle Social History Tobacco Use Types Packs/Day Years Used Date Smoking Tobacco: Never Smokeless Tobacco: Never Tobacco Cessation:Counseling Given: Not Answered Alcohol Use Standard Drinks/Week Comments Not Currently 0 (1 standard drink = 0.6 oz pur e alcohol) [facility] Utilities Answer Date Recorded In the past 12 months has e [employer], gas, oil, or water [employer] threatened to shut off services in your home? No 10/11/2023 Humiliation, Afraid, Rape, and Kick questionnair e Answer Date Recorded Within the last year, have y ou been afraid of your partner or ex-partner? No 10/18/2020 Within the last year, have y ou been humiliated or emotionally abused in other ways by your partner or ex-partner? No Within the last year, have y ou been kicked, hit, slapped, or otherwise physically hurt by your partner or ex-partner? No 10/18/2020 Within the last year, have y ou been raped or forced to have any kind of sexual activity by your partner or ex-partner? No 10/18/2020 Social Connection and Isolation Panel [NHANES] A nswer Date Recorded In a typical week, how many times do you talk on the phone with family, friends, or neighbors? Twice a week 03/05/2021 How often do you get together with friends or re latives? Once a week 03/05/2021 How often do you attend restorationism or anabaptism serv ices? Never 03/05/2021 Do you belong to any clubs o r organizations such as restorationism groups, unions, fraternal or athletic groups, or school groups? No 03/05/2021 How often do you attend meet ings of the clubs or organizations you belong to? Never 03/05/2021 Are you , , di vorced, , never , or living with a partner? 03/05/2021 AUDIT-C Answer Date Recorded Q1: How often do you have a drink containing alc ohol? Never 03/05/2021 Average Number of Drinks Not on file 021 Frequency of Binge Drinking Not on file 02/21 Overall Financial Resource Strain (CARDIA) Answe r Date Recorded How hard is it for you to pa y for the very basics like food, housing, medical care, and heating? Very hard 03/05/2021 PHQ-2 Answer Date Recorded PHQ-2 Score 2 10/15/2023 [facility] Occupat ional [facility] - Occupational Stress Questionnaire Answer Date Recorded Do you feel stress - tense, restless, nervous, or anxious, or unable to sleep at night because your mind is troubled all the time - these days? Very much 03/05/2021 Exercise Vital Sign Answer Date Recorde d On average, how many days pe r week do you engage in moderate to strenuous exercise (like a brisk walk)? 5 days 10/11/2023 On average, how many minutes do you engage in exercise at this level? 30 min 10/11/2023 Hunger Vital Sign Answer Date Recorded Within the past 12 months, y ou worried that your food would run out before you got the money to buy more. Never true 10/11/19 24 Within the past 12 months, t he food you bought just didn't last and you didn't have money to get more. Never true 10/11/2023 PRAPARE - Transportation Answer Date Re corded In the past 12 months, has l ack of transportation kept you from medical appointments or from getting medications? Yes 09/23 In the past 12 months, has l ack of transportation kept you from meetings, work, or from getting things needed for daily living? No 10/11/2023 Depression Answer Date Recor ded PHQ-9 Total Score (max 27) 5 10/15 Nutrition Answer Date Recorded Nutrition: EVOO Fat Source No 10/11 On average, how many serving s of fruits and vegetables do you eat per day (serving size is equal to 1 cup or approximately the size of a tennis ball)? 0-2 10/11/2023 Dental Answer Date Recorded Dental: Regular Dentist Yes 10/11/19 Employment Answer Date Recorded Employment status Employed and actively working without restrictions 10/11/2023 Housing Stability Answer Date Recorded What is your living situation today? I have a [facility] place to live 10/11/2023 Education Answer Date Recorded What is the highest level of school you have completed or the highest degree you have received? Bachelor's degree (e.g., BA, AB, BS) 10/18/2020 Sex and Gender Information Value Date Recorded Sex Assigned at Female 07/07/2021 12:19 PM CDT Gender Identity Female 11/06/2020 10:39 AM CLINICAL EDUCATION CONSULTANT Sexual Orientation Straight 11/06/2020 10 :39 AM CLINICAL EDUCATION CONSULTANT Last Filed Vital Signs Vital Sign Reading Time Taken Comments Blood Pressure 127/84 12/13/2023 2:08 PM CDT Pulse 80 12/13/2023 2:08 PM CDT Temperature 36.5 ??C (97.7 ??F) 12/13/2023 2:08 PM CD T Respiratory Rate 18 04/20/2021 1:50 PM CDT Oxygen Saturation 97% 04/20/2021 1:50 PM CDT Room air Inhaled Oxygen Concentration - - Weight 134 kg (296 lb 4.8 oz) 12/13/2023 2:08 PM CDT w/boots Height 186 cm (6' 1.23) 12/13/2023 2:08 PM CDT w/boots Body Mass Index 38.85 12/13/2023 2:08 PM CDT Plan of Treatment Upcoming Encounters Date Type Department Care Team (Latest Contact Info) Description 03/13/2024 10:00 AM CDT Clinical Communication Virtual Review in [place], [place] [address] [place] [address] 03/16/2024 10:30 AM CDT Appointment Department of Radiology, [facility], in [place], [place] [address] [place] [phone] Inge Petit, LC, C.N.P. [address] [phone] 03/16/2024 11:30 AM CDT Office Visit Department of Orthopedic Surgery in [place], [place] [address] [place] [address] Denys Johnson M.D. [address] [place] [address] Health Maintenance Due Date Last Done Comments Colonoscopy After Positive Cologuard 1970 Hepatitis C Screening 1970 Fasting Glucose for Diabetes Screening 04/21/2022 04/21/2021, 04/14/2021, 04/09/2021, Additional history exists COVID-19 Vaccine (24 season) 2023 07/31/2022, 08/07/2021, 01/13/2021, Additional history exists Hepatitis B Vaccines (2 of 2 - CpG (Heplisav) 2-dose series) 11/12/2023 10/15/2023 Zoster Vaccines (2 of 2) 12/10/2023 10/15/2023 Depression Monitoring (PHQ-9) 02/13/2024 10/15/2023 Mammogram 10/15/2024 10/15/2023, 10/24, 04/23/2014, Additional history exists Lipid (Cholesterol) Screening 10/24/2025 10/24/2020, 04/23/2014, 09/01/2012 Cervical Cancer Screening 10/15/20282023, 10/15/2023, 06/30/2018, Additional history exists DTaP,Tdap,and Td Vaccines (3 - Td or Tdap) 10/15/2033 10/15/2023, 04/23/2014 Influenza Vaccine Completed 07/19/2023, , 07/26/2021, Additional history exists Cologuard Discontinued 10/21/2023 Colorectal Cancer Screening Discontinued Colorectal Cancer Surveillance Discontinued CT Colonography Discontinued CT Colonography Discontinued Colonoscopy Discontinued Colonoscopy Discontinued FIT Discontinued Pneumococcal vaccine (0-64 years) Aged Out No longer eligible based on patient's age to complete this topic Medical Devices Implanted Type Area Research Nurse Device Identifier Shelf Expiration Date Model / Serial / Lot Scrw Pnn Acet Ft 6.5x15 - [id number] Implanted:Qty : 1 on 04/03/2021 by Denys Johnson M.D. at [facility] Hardware e.g. pins/screws/ rods Dep[employer]ynthes 01/20/2031 1217-15-500 / / [id number] Scrw Pnn Acet Ft 6.5x15 - [id number] Implanted:Qty : 1 on 04/03/2021 by Denys Johnson M.D. at [facility] Hardware e.g. pins/screws/ rods [employer] 01/20/2031 1217-15-500 / / [id number] Scrw Pnn Acet Ft 6.5x25 - [id number] Implanted:Qty : 1 on 04/03/2021 by Denys Johnson M.D. at [facility] Hardware e.g. pins/screws/ rods [employer] 01/20/2031 1217-25-500 / / [id number] Scrw Pnn Acet Ft 6.5x35 - [id number] Implanted:Qty : 1 on 04/03/2021 by Denys Johnson M.D. at [facility] Hardware e.g. pins/screws/ rods [employer] 01/20/2031 1217-35-500 / / [id number] Shll Acet Pnn Mhl Porct 58 - [id number] Implanted:Qty : 1 on 04/03/2021 by Denys Johnson M.D. at [facility] Hip Implant [employer] 01/20/2031 8 / / [id number] Lnr Alt 0d 36x58 - [id number] Implanted:Qty : 1 on 04/03/2021 by Denys Johnson M.D. at [facility] Hip Implant [employer] 12/21/2025 8 / / [id number] Hip Stm Actis Hofst Sz7 - [id number] Implanted:Qty : 1 on 04/03/2021 by Denys Johnson M.D. at [facility] Hip Implant [employer] 02/20/2031 [id number] / / [id number] Fem Hd Art Ez [facility] Justyn +5x36 - [id number] Implanted:Qty : 1 on 04/03/2021 by Denys Johnson M.D. at [facility] Hip Implant [employer] 12/21/2025 0 / / [id number] Procedures Procedure Name Priority Date/Time Associated Diagnosis Comments COLOGUARD Routine 10/21/2023 10:00 PM CLINICAL EDUCATION CONSULTANT Screening Cancer Colon HPV WITH GENOTYPING, PCR, THINPREP Routine 10/15/2023 9:00 AM CLINICAL EDUCATION CONSULTANT BI BREAST SCREENING BILATERAL WITH TOMOSYNTHESIS RAD - Routine (most inpatients and all outpatients) 10/15/2023 8:04 AM CLINICAL EDUCATION CONSULTANT Screening Mammogram Breast Cancer EXTI BASIC METABOLIC PANEL, S/P Routine 04/21/2021 6:44 AM CDT LIPID PANEL, S Routine 10/24/2020 8:22 AM CLINICAL EDUCATION CONSULTANT Screening Lipid from Last 3 Months or Most Recently Relevant to Health Maintenance Results * (ABNORMAL) Cologuard - Sent Out Lab (10/21/2023 10:00 PM CLINICAL EDUCATION CONSULTANT) Result Positive( A) Negative 11/01/2023 3:57 AM CLINICAL EDUCATION CONSULTANT EXLI Comment: POSITIVE TEST RESULT. A positive Cologuard result should be followed with a colonoscopy or visual examination of the colon. The normal value (reference range) for this assay is negative. TEST DESCRIPTION: Composite algorithmic analysis of stool DNA-biomarkers with hemoglobin immunoassay. ?? Quantitative values of individual biomarkers are not reportable and are not associated with individual biomarker result reference ranges. Cologuard is intended for colorectal cancer screening of adults of either sex, 45 years or older, who are at average-risk for colorectal cancer (CRC). Cologuard has been approved for use by the U.S. FDA. The performance of Cologuard was established in a cross sectional study of average-risk adults aged 50-84. Cologuard performance in patients ages 45 to 49 years was estimated by sub-group analysis of near-age groups. Colonoscopies performed for a positive result may find as the most clinically significant lesion: colorectal cancer [4.0%], advanced adenoma (including sessile serrated polyps greater than or equal to 1cm diameter) [20%] or non- advanced adenoma [31%]; or no colorectal neoplasia [45%]. These estimates are derived from a prospective cross-sectional screening study of 10,000 individuals at average risk for colorectal cancer who were screened with both Cologuard and colonoscopy. (Maren Pereira al, N Engl J Med 2014;370(14):3441-3738.) Cologuard may produce a false negative or false positive result (no colorectal cancer or precancerous polyp present at colonoscopy follow up). A negative Cologuard test result does not guarantee the absence of CRC or advanced adenoma (pre-cancer). The current Cologuard screening interval is every 3 years. ([place] [employer] Society and U.S. Multi-Society Task Force). Cologuard performance data in a 10,000 patient pivotal study using colonoscopy as the reference method can be accessed at the following location: www.[email or web address]/results. Additional description of the Cologuard test process, warnings and precautions can be found at www.[employer].com. Stool (Stool) 10/21/2023 10: 00 PM CLINICAL EDUCATION CONSULTANT 10/23/2023 1:42 PM CLINICAL EDUCATION CONSULTANT Inge Petit APRN C.N.PSylvia LAB BODY FL UIDS AND STOOLS ORDERABLES [facility] [address] [place] [address] EXLI [email or web address] [address] [facility], [address] [place] [address] * HPV with Genotyping, PCR, ThinPrep (10/15/2023 9:00 AM CLINICAL EDUCATION CONSULTANT) HPV with Genotyping, ThinPrep, PCR Negative Negative 10/16/2023 3:24 PM CLINICAL EDUCATION CONSULTANT MKTO Comment: Negative for high risk HPV by nucleic acid amplification. ??The following high risk HPV types were not detected: 16, 18, 31, 33, 35, 39, 45, 51, 52, 56, 58, 59, 66, and 68 This result does not rule out HPV in the patient, as the sensitivity of the test depends on the timing of the specimen collection and the quality of the specimen. Result should be correlated with patient's history, clinical presentation, and CURING OVEN ATTENDANT cytology report. 10/15/2023 9:00 AM CLINICAL EDUCATION CONSULTANT 10/15/2023 2:06 PM CLINICAL EDUCATION CONSULTANT Inge Petit APRN, C.N.P. LAB MICROBI OLY - GENERAL ORDERABLES [facility] [address] [place] [address], [facility] MKTO [address] [facility] [address] [place] [address] * BI Breast Screening Bilateral with Tomosynthesis (10/15/2023 8:04 AM CLINICAL EDUCATION CONSULTANT) Anatomical Region Laterality Modality Breast, Breast Imaging RST L OS, Breast Imaging ARZ LOS, Breast Imaging FLA LOS Bilateral Mammography Impressions 10/15/2023 8:33 AM CLINICAL EDUCATION CONSULTANT Negative. RECOMMENDATION: ??Annual Screening Mammogram ASSESSMENT: ??BI-RADS: 1: Negative. Narrative 10/15/2023 8:33 AM CLINICAL EDUCATION CONSULTANT EXAM: ??BI BREAST SCREENING BILATERAL WITH TOMOSYNTHESIS Current study was evaluated with a Computer Aided Detection (CAD) system. INDICATION: ??Screening mammogram. COMPARISON: ??Prior exam(s) were available and reviewed for comparison. DENSITY: ??b. There are scattered areas of fibroglandular density. FINDINGS: ??No mammographic findings of malignancy. Procedure Note Morales Shoemaker M.D. - 10/15/2023 EXAM: BI BREAST SCREENING BILATERAL WITH TOMOSYNTHESIS Current study was evaluated with a Computer Aided Detection (CAD) system. INDICATION: Screening mammogram. COMPARISON: Prior exam(s) were available and reviewed for comparison. DENSITY: b. There are scattered areas of fibroglandular density. FINDINGS: No mammographic findings of malignancy. IMPRESSION: Negative. RECOMMENDATION: Annual Screening Mammogram ASSESSMENT: BI-RADS: 1: Negative. Inge Petit APRN, C.N.P. G BI PROC EDURES * Lipid Panel (10/24/2020 8:22 AM CLINICAL EDUCATION CONSULTANT) Cholesterol, Total 184 mg/dL 2020 9:01 AM CLINICAL EDUCATION CONSULTANT OWAT Comment: ----REFERENCE VALUE---- Desirable: < 200 Borderline high: 200 - 239 High: > or = 240 Triglycerides 37 mg/dL 10/24/2020 9:01 AM CLINICAL EDUCATION CONSULTANT OWAT Comment: ----REFERENCE VALUE---- Normal: <150 Borderline high: 150-199 High: 200-499 Very high: > or =500 Cholesterol, HDL 90 >=50 mg/dL 10/24/19 9:01 AM CLINICAL EDUCATION CONSULTANT OWAT Calculated LDL 87 mg/dL 10/24/2020 9:01 AM CLINICAL EDUCATION CONSULTANT OWAT Comment: ----REFERENCE VALUE---- Desirable: <100 Above Desirable: 100-129 Borderline high: 130-159 High: 160-189 Very high: > or =190 Cholesterol, Non-HDL, Calculated 94 mg/dL 10/24/2020 9:01 AM CLINICAL EDUCATION CONSULTANT OWAT Comment: ----REFERENCE VALUE---- Desirable: <130 Above Desirable: 130-159 Borderline high: 160-189 High: 190-219 Very high: > or =220 Blood (Blood, Venous) 10/24/2020 8:22 AM CLINICAL EDUCATION CONSULTANT 10/24/2020 8:25 AM CLINICAL EDUCATION CONSULTANT Inge Petit APRN, C.N.P. LAB BLOOD A DD-ON [facility] [address] [place] [address], [place] OWAT [facility] [place] [address] [place] [address] from Last 3 Months or Most Recently Relevant to Health Maintenance Advance Directives For more information, please contact: [phone] Documents on File Type Date Recorded Patient Personnel Officer Expl anation Advance Directives 04/03/2021 7:26 AM POA for Healthcare * Full Code (Latest Code Status on File) Date Activated Date Inactivated Comments 04/03/2021 2:47 PM 04/07/2021 12:44 PM Question Answer Comments Full Code: Discussed * Full Code Date Activated Date Inactivated Comments 04/03/2021 7:39 AM 04/03/2021 2:47 PM Question Answer Comments Full Code: Discussed Healthcare Agents on File Name Relationship Healthcare Agent [facility] p Communication Lydiadarrion Whitley Daughter Health Care Agent Chantel Mccullough Relative First Alternate Health Care Agent Care Teams Bag Inspector Relationship Specialty Start Date End Date Inge Petit APRN, C.N.P. [address] [place] [phone] PCP - General Family Medicine 03/18/23
--- OUTSIDE RECORDS SUMMARY | 2024-02-20 18:47 | XMS_ITS | Encounter Summary ---
Author Organization [facility] Address [address] [place] [address] Care Team Providers Care Chimney Construction Supervisor Name Role Phone Inge Petit APRN, C.N.P. Primary Care Provi lenore Encounter Details Date Type Department Care Team (Late st Contact Info) Description 11/26/2023 Orders Only [facility] PCP [facility] MNT Inge Petit, LC, C.N.P. [address], [place] [address] Screening Examination Diabetes Mellitus Social History Tobacco Use Types Packs/Day Years Used Date Smoking Tobacco: Never Smokeless Tobacco: Never Alcohol Use Standard Drinks/Week Comments Not Currently 0 (1 standard drink = 0.6 oz pur e alcohol) [facility] Utilities Answer Date Recorded In the past 12 months has e [employer], gas, oil, or water [employer] threatened to shut off services in your [...] week 03/05/2021 How often do you attend scientology or voodoo serv ices? Never 03/05/2021 Do you belong to any clubs o r organizations such as scientology groups, unions, fraternal or athletic groups, or [...] Answer Date Recorded PHQ-2 Score 2 10/15/2023 [facility] of Occupat ional Health - Occupational Stress [...] your living situation today? I have a [facility] place to live 10/11/2023 Education Answer Date Recorded What is the highest level of school you have completed or the highest degree you have received? Bachelor's degree (e.g., BA, AB, BS) 10/18/2020 Sex and Gender Information Value Date Recorded Sex Assigned at Female 07/07/2021 12:19 PM CDT Gender Identity Female 11/06/2020 10:39 AM FOOD SERVICE COUNTER CLERK Sexual Orientation Straight 11/06/2020 10 :39 AM FOOD SERVICE COUNTER CLERK documented as of this encounter Plan of Treatment Upcoming Encounters Date Type Department Care Team (Latest Contact Info) Description 03/13/2024 10:00 AM CDT Clinical Communication Virtual Review in [place], [place] [address] [place] [address] 03/16/2024 10:30 AM CDT Appointment Department of Radiology, [facility], in [place], [place] [address] [place] [address] Inge Petit, LC, C.N.P. [address] [place] [address] 03/16/2024 11:30 AM CDT Office Visit Department of Orthopedic Surgery in [place], [place] [address] [place] [address] Denys Johnson M.D. [address] [place] [address] Scheduled Orders Name Type Priority Associated Diagnoses Orde r Schedule Glucose, Fasting Lab Routine Screening Examination Diabetes Mellitus Expected: 12/10/2023, Expires: 05/24/2024 documented as of this encounter Visit Diagnoses Diagnosis Screening Examination Diabetes Mellitus documented in this encounter Additional Health Concerns Assessment Noted Time PHQ-9 Depression Total Score: 5 10/15/19 7:44 AM FOOD SERVICE COUNTER CLERK documented as of this encounter Care Teams Ch[employer]ney Construction Supervisor Relationship Specialty Start Date End Date Inge Petit APRN, C.N.P. [address] [place] [address] PCP - General Family Medicine 03/18/23 documented as of this encounter
--- OUTSIDE RECORDS SUMMARY | 2024-02-20 18:47 | XMS_ITS | Encounter Summary ---
Author Organization [facility] Address [address] [place] [address] Care Team Providers Care Multiple Sclerosis Nurse Name Role Phone Inge Petit APRN, C.N.P. Primary Care Provi lenore Reason for Visit * Reason Comments Pre-op Exam Colonoscopy 12/30 * Appointment Request (Routine) - Closed Specialty Diagnoses / Procedures Referred By Anuj العلي Referred To Contact Family Medicine Referral ID Status Reason Start Date Expiration Date Visits Re quested Visits Authorized [id number] Closed 12/06/2023 12/05/2024 1 1 Encounter Details Date Type Department Care Team (Late st Contact Info) Description 12/13/2023 2:30 PM CDT Office Visit Department of Family Medicine, [facility], in [place], [place] [address] [phone] Inge Petit APRN, C.N.P. [address] [place] [phone] Preoperative Exam (Primary Dx) Social History Tobacco Use Types Packs/Day Years Used Date Smoking Tobacco: Never Smokeless Tobacco: Never Tobacco Cessation:Counseling Given: Not Answered Alcohol Use Standard Drinks/Week Comments Not Currently 0 (1 standard drink = 0.6 oz pur e alcohol) [facility] Utilities Answer Date Recorded In the past 12 months has [employer], gas, oil, or water [employer] threatened to shut off services in your [...] week 03/05/2021 How often do you attend episcopalian or baptist serv ices? Never 03/05/2021 Do you belong to any clubs o r organizations such as episcopalian groups, unions, fraternal or athletic groups, or [...] Answer Date Recorded PHQ-2 Score 2 10/15/2023 [facility] of Occupat ional Health - Occupational Stress [...] your living situation today? I have a [facility] place to live 10/11/2023 Education Answer Date Recorded What is the highest level of school you have completed or the highest degree you have received? Bachelor's degree (e.g., BA, AB, BS) 10/18/2020 Sex and Gender Information Value Date Recorded Sex Assigned at Female 07/07/2021 12:19 PM CDT Gender Identity Female 11/06/2020 10:39 AM UX VISUAL DESIGNER Sexual Orientation Straight 11/06/2020 10 :39 AM UX VISUAL DESIGNER documented as of this encounter Last Filed Vital Signs Vital Sign Reading Time Taken Comments Blood Pressure 127/84 12/13/2023 2:08 PM CDT Pulse 80 12/13/2023 2:08 PM CDT Temperature 36.5 ??C (97.7 ??F) 12/13/2023 2:08 PM CD T Respiratory Rate - - Oxygen Saturation - - Inhaled Oxygen Concentration - - Weight 134 kg (296 lb 4.8 oz) 12/13/2023 2:08 PM CDT w/boots Height 186 cm (6' 1.23) 12/13/2023 2:08 PM CDT w/boots Body Mass Index 38.85 12/13/2023 2:08 PM CDT documented in this encounter H&P Notes * Inge Petit APRN, C.N.P. - 12/13/2023 2:30 PM CDT SUBJECTIVE CHIEF COMPLAINT/REASON FOR CONSULT Chief Complaint Patient presents with Pre-op Exam Colonoscopy 12/30 Alise Fisher is a 53 y.o. y.o. female who presents today for a pre- operative consultation at the request of Dr. Yee who plans on performing colonoscopy after positive Cologuard on the following date: 12/31/23 at [facility]. Based on information from pre-operative surgical notes,the surgery has minimal risk. Procedure is: Low Risk (cardiac risk >1%): Superficial procedures, endoscopy, cataracts, breast surgery RISK STRATIFICATION Functional status: Functional Class I: Able to perform >7 METS Revised [Angulo] Cardiac Risk Index (RCRI) Hx ischemic heart disease: NO (Hx HI, Hx positive exercise test, current complaint of chest pain c/w myocardial ischemia, use of nitrate therapy, or ECG with pathological Q waves) (Do not count prior coronary revascularization procedure unless one of the other criteria for ischemic heart disease is present) Hx heart failure: NO (History of congestive heart failure, Pulmonary edema, PND, Bilateral rales, S3 gallop, or CXR withpulmonary vascular redistribution) Hx cerebrovascular disease (stroke or TIA): NO Diabetes requiring perioperative insulin use: NO CKD (stage 3 or creatinine >2.0) : NO High-risk surgery type: NO (e.g., supra-inguinal vascular surgery, intra-peritoneal surgery, or intra- thoracic surgery) RCRI Score = 0 RCRI estimated risk of adriano-operative cardiac , non-fatal HI, or non-fatal cardiac arrest: 0 Predictors (0.4% risk of major cardiac event) Howells ABCDEFGHINO Checklist: A (Allergies): YES B (Bleeding tendency, personal or family):YES, Heterozygosity of MTHFR mutation Recent aspirin, plavix, or warfarin use: NO C (Cardiac history*, recent Corticosteroids, Cervical spine problems): NO D (Diabetes): NO E (Embolic/stroke or clotting history): NO F (Family Hx anesthesia complications, personal or family): NO G (Glaucoma, GERD): NO H (Hepatitis or HIV risk): NO I (Intubation difficulties) Mallampati Score (Seated, neck in neutral position, tongue fully protruded without phonation): II (hard and soft palate, upper portion of tonsils anduvula visible) N (pre-existing Neuro deficits): NO O (Obstructive sleep apnea): NO CARDIOVASCULAR HISTORY cardiovascular history none Stent in the past 12 months: NO History of bacterial endocarditis: NO History of heart valve replacement: NO PULMONARY HISTORY: Pulmonary History none Oxygen use: NO OTHER HISTORY Other Medical History Heterozygosity of MTHFR mutation History of joint replacement: YES, left hip Need antibiotics prior to surgery or dental procedures: NO Recent illnesses: YES, Upper resp symptoms 2 weeks ago has since resolved Recent antibiotic use: NO History of MRSA skin infections: NO Smoker: NO Alcohol use: YES, 1-2 drinks per month Illicit drug use: NO : NO Glasses/Contacts: YES Hearing aids: NO Dentures/Dental issues: NO REVIEW OF SYSTEMS The following systems were negative: Constitutional, Skin, Eyes, ENT, Respiratory, Cardiovascular, Gastrointestinal, Genitourinary, Hematologic, Musculoskeletal, Neurological, Psychiatric PAST MEDICAL/SURGICAL HISTORY Patient Active Problem List Diagnosis Primary Hypercoagulation Syndrome (HCC) Cancer Breast Family History Depressive Disorder Elevated Blood Pressure Without Hypertension Embolus Pulmonary Family History Methylenetetrahydrofolate Reductase Deficiency (HCC) Obesity Body Mass Index 30-39.9 Adult Pain Hip Left PreDiabetes Reductase Methyltetrahydrofolate Mutant (HCC) Thrombocytosis Unspecified Pain Low Back Unspecified Morbid Severe Obesity Due To Excess Calories (HCC) Primary Osteoarthritis Hip Left Anxiety Generalized Disorder Palpitations Aftercare Total Hip Arthroplasty Edema Past Surgical History: Procedure Laterality Date ARTHROPLASTY REPLACEMENT TOTAL HIP Left 04/03/2021 Procedure: ARTHROPLASTY REPLACEMENT TOTAL HIP.; Surgeon: Denys Johnson M.D.; Location: [facility] OR DILATION AND CURETTAGE OF UTERUS N/A 03/19/2011 Hysteroscopy, surgical; with sampling (biopsy) of endometrium and/or polypectomy, with or without D& C.. GANGLION CYST EXCISION Left 1986 from wrist LOWER ARM SURGERY Left 1980 surgically re-broken OTHER SURGICAL HISTORY 2010 TONSILLECTOMY 1976 TUMOR REMOVAL Left 1991 removed from left thigh FAMILY HISTORY Family History Problem Relation Age of Onset PE - Pulmonary embolism Mother age 48 Skin cancer Father on going-wells Other cancer Father Hodgkins Disease Heart Father pacemaker, TAVR Cardiomyopathy Brother age 31 Breast cancer Maternal Grandmother 65 Colon cancer Maternal Grandfather Heart attack Uncle 57 maternal uncle SOCIAL HISTORY Social History Tobacco Use Smoking status: Never Smokeless tobacco: Never Vaping Use Vaping Use: never used Substance Use Topics Alcohol use: Not Currently Alcohol/week: 0.0 standard drinks of alcohol Drug use: Never MEDICATIONS Current Outpatient Medications Medication Sig buPROPion (WELLBUTRIN SR) 150 mg 12 hr tablet Take 1 tablet (150 mg total) by mouth 2 (two) times aday. diphenhydrAMINE (BENADRYL) 25 mg tablet Take 1 tablet (25 mg total) by mouth at bedtime as needed for sleep. (Patient taking differently: Take 25 mg by mouth at bedtime.) naproxen sodium 220 mg capsule Take 1 tablet by mouth as needed. acetaminophen (TYLENOL) 500 mg capsule Take 2 capsules (1,000 mg total) by mouth 2 (two) times a day as needed for pain for up to 20 days. multivitamin tablet Take 1 tablet by mouth. ALLERGIES Allergies Allergen Reactions Advil [Ibuprofen] Edema (Reselect Reaction) In legs and blood pressure goes up Nickel Rash and Edema (Reselect Reaction) Oxycodone Other (see comments) Pseudoephedrine Other (see comments) Numbness in arms Akbbwwcg-Padgumdjbg-Wyzsihlli Rash OBJECTIVE BP 127/84 (BP Location: Right arm, Patient Position: Sitting, Cuff Size: Large) Pulse 80 Temp 36.5 ??C (Temporal) Ht 186 cm Comment: w/boots Wt 134 kg Comment: w/boots BMI 38.85 kg/m?? PHYSICAL EXAMINATION Vitals reviewed. Constitutional General: She is not in acute distress. Appearance: Normal appearance. She is not ill-appearing. HENT Head: Normocephalic. Right Ear: Tympanic membrane, ear canal and external ear normal. Left Ear: Tympanic membrane, ear canal and external ear normal. Nose: Nose normal. Mouth/Throat: Mouth: Mucous membranes are moist. Pharynx: Oropharynx is clear. Eyes Conjunctiva/sclera: Conjunctivae normal. Pupils: Pupils are equal, round, and reactive to light. Neck Thyroid: No thyromegaly or thyroid tenderness. Vascular: No carotid bruit. Trachea: Trachea normal. Cardiovascular Rate and Rhythm: Normal rate and regular rhythm. Heart sounds: Normal heart sounds, S1 normal and S2 normal. No murmur heard. No friction rub. No gallop. No S3 or S4 sounds. Pulmonary Effort: Pulmonary effort is normal. No respiratory distress. Breath sounds: Normal breath sounds. No wheezing, rhonchi or rales. Abdominal General: Abdomen is flat. Bowel sounds are normal. There is no distension. Palpations: Abdomen is soft. There is no hepatomegaly, splenomegaly or mass. Tenderness: There is no abdominal tenderness. Genitourinary General: Normal vulva. Musculoskeletal General: Normal range of motion. Cervical back: Normal range of motion and neck supple. No muscular tenderness. Right lower leg: No edema. Left lower leg: No edema. Lymphadenopathy Cervical: No cervical adenopathy. Right cervical: No superficial, deep or posterior cervical adenopathy. Left cervical: No superficial, deep or posterior cervical adenopathy. Skin General: Skin is warm and dry. Neurological General: No focal deficit present. Mental Status: She is alert and oriented to person, place, and time. Cranial Nerves: Cranial nerves 2-12 are intact. Psychiatric Mood and Affect: Mood normal. Behavior: Behavior normal. Thought Content: Thought content normal. Judgment: Judgment normal. DIAGNOSTICS none indicated at this time ASSESSMENT / PLAN 1. Preoperative Exam PLAN: Patient medically acceptable for planned procedure - See SANDOVAL in HPI above. The patient is deemed to have a medically satisfactory risk profile for the planned surgical procedure, and of low risk of a adriano-operative cardiac event. Patient is capable of >4 METS activity without unusual dyspnea or chest pain, no additional cardiac testing is needed. We reviewed medications to avoid taking prior to the procedure, including avoiding aspirin, NSAIDs, and herbal medications for at least 1 week prior to surgery. The patient knows to be fasting after midnight the day of surgery. Further preoperative and postoperative recommendations will be given prior to surgery by surgeon. Patient will followup with me as needed. Inge Petit APRN, C.N.P. documented in this encounter Plan of Treatment Upcoming Encounters Date Type Department Care Team (Latest Contact Info) Description 03/13/2024 10:00 AM CDT Clinical Communication Virtual Review in [place], [place] [address] [place] [address] 03/16/2024 10:30 AM CDT Appointment Department of Radiology, [facility], in [place], [place] [address] [place] [phone] Inge Petit APRN, C.N.P. [address] [place] [phone] 03/16/2024 11:30 AM CDT Office Visit Department of Orthopedic Surgery in [place], [place] [address] [place] [phone] Denys Johnson M.D. [address] [place] [phone] documented as of this encounter Visit Diagnoses Diagnosis Preoperative Exam- Primary documented in this encounter Additional Health Concerns Assessment Noted Time PHQ-9 Depression Total Score: 5 10/15/19 7:44 AM UX VISUAL DESIGNER documented as of this encounter Care Teams Multiple Sclerosis Nurse Relationship Specialty Start Date End Date Inge Petit APRN, C.N.P. [address] [place] [phone] PCP - General Family Medicine 03/18/23 documented as of this encounter
--- OUTSIDE RECORDS SUMMARY | 2024-02-20 18:47 | XMS_ITS ---
Author Organization [facility] Address [address] [place] [address] Care Team Providers Care Cork Wirer Name Role Phone Unavailable Unavailable Unavailable Surgery Details Not on file Complications Check Surgery Details section. Procedure Estimated Blood Loss Check Surgery Details section. Procedure Findings Check Surgery Details section. Procedure Specimens Taken Check Surgery Details section.
--- OUTSIDE RECORDS SUMMARY | 2024-02-20 18:47 | XMS_ITS | Encounter Summary ---
Author Organization [facility] Address [address] [place] [address] Care Team Providers Care Legal Assistant Name Role Phone Inge Petit APRN, C.NBrooke Primary Care Provi lenore Encounter Details Date Type Department Care Team (Late st Contact Info) Description 11/26/2023 Orders Only Division of Gastroenterology in [place], [place] [address] [place] [address] Thaddeus Rojas M.D. [address] [place] [phone] Genetic Susceptibility To Disease Social History Tobacco Use Types Packs/Day Years Used Date Smoking Tobacco: Never Smokeless Tobacco: Never Alcohol Use Standard Drinks/Week Comments Not Currently 0 (1 standard drink = 0.6 oz pur e alcohol) [facility] Utilities Answer Date Recorded In the past 12 months has [facility] [employer], gas, oil, or water [employer] threatened to shut off services in your [...] week 03/05/2021 How often do you attend voodoo or spiritism serv ices? Never 03/05/2021 Do you belong to any clubs o r organizations such as voodoo groups, unions, fraternal or athletic groups, or [...] Answer Date Recorded PHQ-2 Score 2 10/15/2023 [facility] of Occupat ional Health - Occupational Stress [...] money to buy more. Never true 10/11/19 Within the past 12 months, t he [...] your living situation today? I have a [facility] place to live 10/11/2023 Education Answer Date Recorded What is the highest level of school you have completed or the highest degree you have received? Bachelor's degree (e.g., BA, AB, BS) 10/18/2020 Sex and Gender Information Value Date Recorded Sex Assigned at Female 07/07/2021 12:19 PM CDT Gender Identity Female 11/06/2020 10:39 AM ADAPTIVE PHYSICAL EDUCATOR Sexual Orientation Straight 11/06/2020 10 :39 AM ADAPTIVE PHYSICAL EDUCATOR documented as of this encounter Plan of Treatment Upcoming Encounters Date Type Department Care Team (Latest Contact Info) Description 03/13/2024 10:00 AM CDT Clinical Communication Virtual Review in [place], [place] [address] [place] [address] 03/16/2024 10:30 AM CDT Appointment Department of Radiology, [facility], in [place], [place] [address] [place] [address] Inge Petit, MANAGER CORPORATE STRATEGY, C.N.P. [address] [phone] 03/16/2024 11:30 AM CDT Office Visit Department of Orthopedic Surgery in [place], [place] [address] [place] [address] Denys Johnson M.D. [address] [place] [address] documented as of this encounter Procedures Procedure Name Priority Date/Time Associated Diagnosis Comments EXT TAPESTRY Routine 06/06/2021 12:00 AM CDT Genetic Susceptibility To Disease documented in this encounter Results * EXT Tapestry (06/06/2021 12:00 AM CDT) Gene Studied BRCA1,BRCA2,MLH1,MSH 2,MSH 6,PMS2,EPCAM,APOB,LDLR,LD LRAP1,PCSK9 12:00 AM CDT BESSY Genetic Disease Assessed Evaluation of 11 genes associated with Hereditary Breast and Ovarian Cancer, Alanis Syndrome and Familial Hypercholesterolemia. 12:00 AM CDT B[facility] Genetic Analysis Overall Interpretation Negative results through Tapestry do not replace diagnostic testing for patients with a personal or family history of cancer/hypercholesterolem ia due to limitations with methodology. Consider a referral to a genetic counselor for diagnostic testing if warranted. 12:00 AM CDT BESSY Genetic Analysis Report See Tapestry PDF Report No actionable gene changes were detected in the genes that cause Familial Hypercholesterolemia. The genes tested for this condition were APOB, LDLR, LDLRAP1, and PCSK9.No actionable gene changes were detected in the genes that cause Hereditary Breast and Ovarian Cancer. The genes tested for this condition were BRCA1 and BRCA2.No actionable gene changes were detected in the genes that cause Alanis Syndrome. The genes tested for this condition were MLH1, MSH2, MSH6, PMS2 and EPCAM. Clinical confirmation of actionable variants is advised prior to changing your medical care. Genetic counseling is recommended. This test is not intended to diagnose a disease, determine medical treatment, or tell the user anything about their current state of health. This test is intended to provide users with their genetic information to inform lifestyle decisions and conversations with their doctor. Any diagnostic or treatment decisions should be based on testing and/or other information that your healthcare provider determines to be appropriate for you. DNA extracted from your saliva sample was captured and enriched using a custom set of reagents ([employer] Exome+ chemistry). Targeted regions were then sequenced using an Illumina DNA sequencing system. Alignment to a modified version of GRCh38 and variant calling were completed using a customized version of [employer] software, requiring 20x coverage for validated variant calls. The test panel is bioinformatically selected from the [employer]+. Copy Number Variants (CNVs) were called using a proprietary bioinformatics pipeline that compared the coverage profile of your sample with the coverage profiles of a reference set of other samples. [facility] then analyzed generated variant data for the exons and 10 bp of flanking intronic sequence (and select tagged intronic variants) of the 11 genes included in EVOFEM from the [employer] Mobile Database. The Analytical Range includes single nucleotide variants (SNVs), indels up to 20 bp in length, and CNVs. Note: CNV sensitivity is limited to events that span two or more exons. For genes involved in Familial Hypercholesterolemia, only variants associated with the condition are reported, while variants associated with other phenotypes such as hypobetalipoproteinemia are not included. Some known complex variants like inversion exon 1-7 in the MSH2 gene (Jun inversion) or exons 11-15 of the PMS2 gene are not analyzed or reported. Finally, it is important to note that this assay cannot detect all variants known to increase disease risk. ??Specifically, there are regions that are not covered, such as deep intronic, promoter, homopolymer regions greater than 7 bp, and untranslated regions. 1 12:00 AM T BESSY Human Reference Sequence Assembly GRCh38 12:00 AM [facility] 06/06/2021 Thaddeus Rojas M.D. LAB GENETI C TESTING [place] [employer] [address] [address] [facility], [address] [place] [address], [facility] [employer] [address] [address], [address] [place] [address] documented in this encounter Visit Diagnoses Diagnosis Genetic Susceptibility To Disease documented in this encounter Additional Health Concerns Assessment Noted Time PHQ-9 Depression Total Score: 5 10/15/19 24 7:44 AM ADAPTIVE PHYSICAL EDUCATOR documented as of this encounter Care Teams Legal Assistant Relationship Specialty Start Date End Date Inge Petit APRN, C.N.P. [address] [place] [phone] PCP - General Family Medicine 03/18/23 documented as of this encounter
--- OUTSIDE RECORDS SUMMARY | 2024-02-20 18:47 | XMS_ITS | Referral Summary ---
Author Organization [facility] Address [address] [place] [address] Care Team Providers Care Flexographic Press Operator Name Role Phone Inge Petit APRN, C.N.P. Primary Care Provi lenore Source Comments Patient records contain information from all sites at [facility]. For routine questions regarding patient records, call [phone] during business hours, M-F 8:00 AM - 5:00 PM Central Time. Record requests for emergency care only can be directed to [phone] at any time.[facility] Encounters Date Type Department Care Team Description 12/13/2023 2:30 PM CDT Office Visit Department of Family Medicine, [facility], in [place], [place] [address] [place] [phone] Inge Petit APRN, C.N.P. Preoperative Exam (Primary Dx) 12/12/2023 Clinical Communication Department of Family Medicine, [facility], in [place], [place] [address] [place] [address] Inge Petit APRN, C.N.P. 11/26/2023 Orders Only [facility] MNT Inge Petit APRN, C.N.P. Screening Examination Diabetes Mellitus 11/26/2023 Orders Only Division of Gastroenterology in [place], [place] [address] [place] [address] Thaddues Rojas M.D. Genetic Susceptibility To Disease from Last 3 Months Allergies Active Allergy Reactions Criticality Noted Date Comments Ibuprofen Edema (Reselect Reaction) 10/18/2020 In legs and blood pressure goes up Eeijvram-Avvaufsuhl-Gsshv yxin Rash Low 12/03/2014 Nickel Rash,Edema (Reselect [...] Overview: Added automatically from request for surgery [id number] Morbid Severe Obesity Due To Excess Calories [...] Defects 01/27/2010 10/15/2023 Overview: Primary Hypercoagulable State Immunizations Name Administration Dates Next Due HepB Adult (HEPLISAV-B) 10/15/2023 Influenza, Injectable, Mdck, Quadrivalent 07/23/2022 Influenza, Unspecified 07/22/2019 RZV (SHINGRIX) 10/15/2023 Rabies (Rabavert) 05/21/2022, 2,05/10/2022,2021 SARS-COV-2 (COVID-19) - PFIZ ER (Discontinued)(12 years or older) 08/07/2021,01/13/2021,12/21/2020 Tdap 10/15/2023,04/23/2014 influenza vaccine quad (FLUZONE/FLUARIX) (6 months and older)(PF) 07/19/2023,07/26/2021,06/06/2020,2017 Social History Tobacco Use Types Packs/Day Years Used Date Smoking Tobacco: Never Smokeless Tobacco: Never Tobacco Cessation:Counseling Given: Not Answered Alcohol Use Standard Drinks/Week Comments Not Currently 0 (1 standard drink = 0.6 oz pur e alcohol) [facility] Utilities Answer Date Recorded In the past 12 months has e electric, gas, oil, or water company threatened to shut off services in your [...] week 03/05/2021 How often do you attend rastafarian or taoist serv ices? Never 03/05/2021 Do you belong to any clubs o r organizations such as rastafarian groups, unions, fraternal or athletic groups, or [...] Answer Date Recorded PHQ-2 Score 2 10/15/2023 [facility] [place] of Occupat ional Health - Occupational Stress [...] Date Recorded Dental: Regular Dentist Yes 10/11/19 24 Employment Answer Date Recorded Employment status Employed and actively working without restrictions 10/11/2023 Housing Stability Answer Date Recorded What is your living situation today? I have a [address] place to live 10/11/2023 Education Answer Date Recorded What is the highest level of school you have completed or the highest degree you have received? Bachelor's degree (e.g., BA, AB, BS) 10/18/2020 Sex and Gender Information Value Date Recorded Sex Assigned at Female 07/07/2021 12:19 PM CDT Gender Identity Female 11/06/2020 10:39 AM ACADEMIC SPECIALIST Sexual Orientation Straight 11/06/2020 10 :39 AM ACADEMIC SPECIALIST Last Filed Vital Signs Vital Sign Reading [...] AM CDT Clinical Communication Virtual Review in [place], [place] [address] [place] [address] 03/16/2024 10:30 AM CDT Appointment Department of Radiology, [facility], in [address] [phone] Inge Petit, SAND MILLER, C.N.P. [address] [phone] 03/16/2024 11:30 AM CDT Office Visit Department of Orthopedic Surgery in [address] [phone] Denys Johnson M.D. [address] [place] [phone] Medical Devices Implanted Type Area Clinical Pharmacologist Device Identifier Shelf Expiration Date Model / Serial / Lot Scrw Pnn Acet Ft 6.5x15 - [id number] Implanted:Qty : 1 on 04/03/2021 by Denys Johnson M.D. at [facility] Hardware e.g. pins/screws/ rods Depuy [employer]ynthes 01/20/2031 1217-15-500 / / [id number] Scrw Pnn Acet Ft 6.5x15 - [id number] Implanted:Qty : 1 on 04/03/2021 by Denys Johnson M.D. at [facility] Hardware e.g. pins/screws/ rods [employer]ynthes 01/20/2031 1217-15-500 / / [id number] Scrw Pnn Acet Ft 6.5x25 - [id number] Implanted:Qty : 1 on 04/03/2021 by Denys Johnson M.D. at [facility] Hardware e.g. pins/screws/ rods [employer] 01/20/2031 1217-25-500 / / [id number] Scrw Pnn Acet Ft 6.5x35 - [id number] Implanted:Qty : 1 on 04/03/2021 by Denys Johnson M.D. at [facility] Hardware e.g. pins/screws/ rods [employer] 01/20/2031 1217-35-500 / / [id number] Shll Acet Pnn Mhl Porct 58 - [id number] Implanted:Qty : 1 on 04/03/2021 by Denys Johnson M.D. at [facility] Hip Implant [employer] 01/20/2031 8 / / [id number] Lnr Alt 0d 36x58 - [id number] Implanted:Qty : 1 on 04/03/2021 by Denys Johnson M.D. at [facility] Hip Implant [employer] 12/21/2025 8 / / [id number] Hip Stm Actis Hofst Sz7 - [id number] Implanted:Qty : 1 on 04/03/2021 by Denys Johnson M.D. at [facility] Hip Implant [employer]ynthe[employer] 02/20/2031 [id number] / / [id number] Fem Hd Art Ez [facility] +5x36 - [id number] Implanted:Qty : 1 on 04/03/2021 by Denys Johnson M.D. at [facility] Hip Implant [employer]ynthe[employer] 12/21/2025 0 / / [id number] Procedures Procedure Name Priority Date/Time Associated Diagnosis Comments COLOGUARD Routine 10/21/2023 10:00 PM ACADEMIC SPECIALIST Screening Cancer Colon HPV WITH GENOTYPING, PCR, THINPREP Routine 10/15/2023 9:00 AM ACADEMIC SPECIALIST BI BREAST SCREENING BILATERAL WITH TOMOSYNTHESIS RAD - Routine (most inpatients and all outpatients) 10/15/2023 8:04 AM ACADEMIC SPECIALIST Screening Mammogram Breast Cancer EXTI BASIC METABOLIC PANEL, S/P Routine 04/21/2021 6:44 AM CDT LIPID PANEL, S Routine 10/24/2020 8:22 AM ACADEMIC SPECIALIST Screening Lipid from Last 3 Months or Most Recently Relevant to Health Maintenance Results * (ABNORMAL) Cologuard - Sent Out Lab (10/21/2023 10:00 PM ACADEMIC SPECIALIST) [facility] Result Positive( A) Negative 11/01/2023 3:57 AM ACADEMIC SPECIALIST EXLI Comment: POSITIVE TEST RESULT. A positive [...] (Maren Pereira al, N Engl J Med 2014;370(14):5264-6504.) Cologuard may produce a false negative or false positive result (no colorectal cancer or precancerous polyp present at colonoscopy follow up). A negative Cologuard test result does not guarantee the absence of CRC or advanced adenoma (pre-cancer). The current Cologuard screening interval is every 3 years. ([place] [employer] Society and U.S. Multi-Society Task Force). Cologuard performance data in a 10,000 patient pivotal study using colonoscopy as the reference method can be accessed at the following location: www.SportsBoard/results. Additional description of the Cologuard test process, warnings and precautions can be found at www.[employer] Care[employer]. Stool (Stool) 10/21/2023 10: 00 PM ACADEMIC SPECIALIST 10/23/2023 1:42 PM ACADEMIC SPECIALIST Inge Petit APRN, C.N.P. LAB BODY FL UIDS AND STOOLS ORDERABLES [facility] [address] [place] [address] [facility] [address] [facility], [address] [place] [address] * HPV with Genotyping, PCR, ThinPrep (10/15/2023 9:00 AM ACADEMIC SPECIALIST) HPV with Genotyping, ThinPrep, PCR Negative Negative 10/16/2023 3:24 PM ACADEMIC SPECIALIST MKTO Comment: Negative for high risk HPV [...] correlated with patient's history, clinical presentation, and DIRECTOR BIOMEDICAL ENGINEERING cytology report. 10/15/2023 9:00 AM ACADEMIC SPECIALIST 10/15/2023 2:06 PM ACADEMIC SPECIALIST Inge Petit APRN, C.N.P. LAB [facility] - GENERAL ORDERABLES [facility] [address] [place] [address], [facility] MKTO [address] [address] * BI Breast Screening Bilateral with Tomosynthesis (10/15/2023 8:04 AM ACADEMIC SPECIALIST) Anatomical Region Laterality Modality Breast, Breast Imaging RST L OS, Breast Imaging ARZ LOS, Breast Imaging FLA LOS Bilateral Mammography Impressions 10/15/2023 8:33 AM ACADEMIC SPECIALIST Negative. RECOMMENDATION: ??Annual Screening Mammogram ASSESSMENT: ??BI-RADS: 1: Negative. Narrative 10/15/2023 8:33 AM ACADEMIC SPECIALIST EXAM: ??BI BREAST SCREENING BILATERAL WITH TOMOSYNTHESIS [...] Annual Screening Mammogram ASSESSMENT: BI-RADS: 1: Negative. Evelyn Phan APRNNBrooke [facility] BI PROC EDURES * Lipid Panel (10/24/2020 8:22 AM ACADEMIC SPECIALIST) Cholesterol, Total 184 mg/dL 2020 9:01 AM ACADEMIC SPECIALIST OWAT Comment: ----REFERENCE VALUE---- Desirable: < 200 Borderline high: 200 - 239 High: > or = 240 Triglycerides 37 mg/dL 10/24/2020 9:01 AM ACADEMIC SPECIALIST OWAT Comment: ----REFERENCE VALUE---- Normal: <150 Borderline high: 150-199 High: 200-499 Very high: > or =500 Cholesterol, HDL 90 >=50 mg/dL 10/24/19 9:01 AM ACADEMIC SPECIALIST OWAT Calculated LDL 87 mg/dL 10/24/2020 9:01 AM ACADEMIC SPECIALIST OWAT Comment: ----REFERENCE VALUE---- Desirable: <100 Above Desirable: 100-129 Borderline high: 130-159 High: 160-189 Very high: > or =190 Cholesterol, Non-HDL, Calculated 94 mg/dL 10/24/2020 9:01 AM ACADEMIC SPECIALIST OWAT Comment: ----REFERENCE VALUE---- Desirable: <130 Above Desirable: 130-159 Borderline high: 160-189 High: 190-219 Very high: > or =220 Blood (Blood, Venous) 10/24/2020 8:22 AM ACADEMIC SPECIALIST 10/24/2020 8:25 AM ACADEMIC SPECIALIST Evelyn Phan APRNNBrooke LAB BLOOD A DD-ON [facility] [address] [place] [address], [facility] OWAT [facility] in [place] [address] [place] [address] from Last 3 Months or Most Recently Relevant to Health Maintenance Advance Directives For more information, please contact: [phone] Documents on File Type Date Recorded Patient Net Developer With Wcf Expl anation Advance Directives 04/03/2021 7:26 AM POA for Healthcare * Full Code (Latest Code Status on File) Date Activated Date Inactivated Comments 04/03/2021 2:47 PM 04/07/2021 12:44 PM Question Answer Comments Full Code: Discussed * Full Code Date Activated Date Inactivated Comments 04/03/2021 7:39 AM 04/03/2021 2:47 PM Question Answer Comments Full Code: Discussed Healthcare Agents on File Name Relationship Healthcare Agent [facility] p Communication Lydiabettye Whitley Daughter Health Care Agent Chantel Mcculluogh Relative First Alternate Health Care Agent Care Teams Flexographic Press Operator Relationship Specialty Start Date End Date Inge Petit, LC, C.N.P. [address] [place] [phone] PCP - General Family Medicine 03/18/23
--- OUTSIDE RECORDS SUMMARY | 2024-02-20 18:47 | XMS_ITS | Encounter Summary ---
Author Organization [facility] Address [address] [place] [address] Care Team Providers Care Metal Smelter Name Role Phone Inge Petit APRN, C.N.P. Primary Care Provi lenore Encounter Details Date Type Department Care Team (Late st Contact Info) Description 12/12/2023 Clinical Communication Department of Family Medicine, [facility], in [place], [place] [address] [place] [phone] Inge Petit APRN, C.N.P. [address] [place] [phone] Social History Tobacco Use Types Packs/Day Years Used Date Smoking Tobacco: Never Smokeless Tobacco: Never Alcohol Use Standard Drinks/Week Comments Not Currently 0 (1 standard drink = 0.6 oz pur e alcohol) [facility] Utilities Answer Date Recorded In the [...] week 03/05/2021 How often do you attend orthodoxy or orthodox serv ices? Never 03/05/2021 Do you belong to any clubs o r organizations such as orthodoxy groups, unions, fraternal or athletic groups, or [...] Answer Date Recorded PHQ-2 Score 2 10/15/2023 [facility] of Occupat ional Health - [...] your living situation today? I have a [facility] place to live 10/11/2023 Education Answer Date Recorded What is the highest level of school you have completed or the highest degree you have received? Bachelor's degree (e.g., BA, AB, BS) 10/18/2020 Sex and Gender Information Value Date Recorded Sex Assigned at Female 07/07/2021 12:19 PM CDT Gender Identity Female 11/06/2020 10:39 AM EXPLOSIVE ORDNANCE DISPOSAL MANAGER Sexual Orientation Straight 11/06/2020 10 :39 AM EXPLOSIVE ORDNANCE DISPOSAL MANAGER documented as of this encounter Plan of Treatment Upcoming Encounters Date Type Department Care Team (Latest Contact Info) Description 03/13/2024 10:00 AM CDT Clinical Communication Virtual Review in [place], [place] [address] [place] [address] 03/16/2024 10:30 AM CDT Appointment Department of Radiology, [facility], in [place], [place] [address] [place] [address] Inge Petit, LC, C.N.P. [address] [place] [phone] 03/16/2024 11:30 AM CDT Office Visit Department of Orthopedic Surgery in [place], [place] [address] [place] [address] Denys Johnson M.D. [address] [place] [address] documented as of this encounter Visit Diagnoses Not on filedocumented in this encounter Additional Health Concerns Assessment Noted Time PHQ-9 Depression Total Score: 5 10/15/19 24 7:44 AM EXPLOSIVE ORDNANCE DISPOSAL MANAGER documented as of this encounter Care Teams Metal Smelter Relationship Specialty Start Date End Date Inge Petit APRN, C.N.P. [address] [place] [phone] PCP - General Family Medicine 03/18/23 documented as of this encounter
[2024-02-20] MEDS: RABIES IMMUNE GLOBULIN 150 UNIT/ML INJ 2685 UNIT INFILTRATI (19:24)
== END 2024-02-20 19:28 | disposition home or self-care (01) ==
LOC: ED 18:44
PROVIDERS: Emergency Provider Emergency Medicine Emergency Medical Services
DX: Z20.3 Contact with and (suspected) exposure to rabies (principal)
CPT/HCPCS: 90377; 90471; 90675; 99282; 99283; 99284

== ENCOUNTER 2024-03-27 11:35 | Outpatient (CLI) | payer OTHER, SELFPAY ==
--- OUTSIDE RECORDS SUMMARY | 2024-03-29 07:58 | XMS_ITS | Encounter Summary ---
Author Organization [facility] Address [address] [place] [address] Care Team Providers Care Sealer Sander Name Role Phone Inge Petit APRN, C.N.P. Primary Care Provi lenore Reason for Referral * Outpatient (Routine) - Authorized Specialty Diagnoses / Procedures Referred By Anuj العلي Referred To Contact Family Medicine Diagnoses Pain Knee Right Janel Kurtz P.A.-C., M.S. [address] [place] [address] [facility] Referral ID Status Reason Start Date Expiration Date V isits Requested Visits Authorized [id number] Authorized 03/16/2024 09/15/2025 1 1 Reason for Visit * Outpatient (Routine) - Closed Specialty Diagnoses / Procedures Referred By Anuj العلي Referred To Contact Orthopedic Surgery Diagnoses Pain Knee Right Inge Petit APRN, C.N.P. [address], [place] [address] [facility] Referral ID Status Reason Start Date Expiration Date Visits Re quested Visits Authorized [id number] Closed 11/06/2023 05/07/2025 1 1 Encounter Details Date Type Department Care Team (Late st Contact Info) Description 03/16/2024 11:30 AM CDT Office Visit Department of Orthopedic Surgery in [place], [place] [address] [place] [address] Denys Johnson M.D. [address] [place] [address] Pain Knee Right Social History Tobacco Use Types Packs/Day Years Used Date Smoking Tobacco: Never Smokeless Tobacco: Never Alcohol Use Standard Drinks/Week Comments Yes 1 (1 standard drink = 0.6 oz pur e alcohol) 1 drink every other week [facility] [employer] Answer Date Recorded In the past 12 [...] week 03/05/2021 How often do you attend roman catholic or jainism serv ices? Never 03/05/2021 Do you belong to any clubs o r organizations such as roman catholic groups, unions, fraternal or athletic groups, or [...] Answer Date Recorded PHQ-2 Score 2 10/15/2023 [facility] of Occupat ional Health - Occupational [...] 27) 5 10/15 Nutrition Answer Date Recorded On average, how many serving s of [...] your living situation today? [facility] 10/11/2023 Education Answer Date Recorded What is the highest level of school you have completed or the highest degree you have received? Bachelor's degree (e.g., BA, AB, BS) 10/18/2020 Sex and Gender Information Value Date Recorded Sex Assigned at Female 07/07/2021 12:19 PM CDT Gender Identity Female 11/06/2020 10:39 AM CORPORATE COORDINATOR Sexual Orientation Straight 11/06/2020 10 :39 AM CORPORATE COORDINATOR documented as of this encounter Plan of Treatment Upcoming Encounters Date Type Department Care Team (Late st Contact Info) Description 05/19/2024 3:00 PM CDT Telemedicine Department of Patient Education in [place], [place] [address] [place] [address] Janel Kurtz P.A.-C., M.S. [address] [place] [phone] 05/27/2024 3:00 PM CDT Office Visit Department of Family Medicine, [facility], in [place], [place] [address] [place] [phone] Inge Petit APRN, C.N.P. [address] [place] [phone] 06/02/2024 9:30 AM CDT Appointment Department of Laboratory Medicine and Pathology, [facility] in [place], [place] [address] [place] [address] Janel Kurtz P.A.-C., M.S. [address] [place] [phone] 06/02/2024 10:15 AM CDT Appointment Department of Radiology, [facility], in [place], [place] [address] [place] [phone] Janel Kurtz P.A.-C., M.S. [address] [place] [address] 06/02/2024 11:15 AM CDT Office Visit Department of Orthopedic Surgery in [place], [place] [address] [place] [address] Denys Johnson M.D. [address] [place] [phone] 06/03/2024 Hospital Encounter RST ROEI 02 4 AM ADMIT [address] [place] [phone] Denys Johnson M.D. [address] [place] [phone] Scheduled Procedures Name Priority Associated Diagnoses Date/Ti oh ROBOTIC-ASSISTED KNEE TOTAL ARTHROPLASTY Preoperative Exam Primary Osteoarthritis Knee Right Scheduled Referrals Name Type Priority Associated Diagnoses Order Schedule Primary Care - TRISHA consult (clinic) Outpatient Referral Routine Pain Knee Right 1 Occurrences starting 03/16/2024 until 06/16/2025 documented as of this encounter Visit Diagnoses Diagnosis Pain Knee Right Preoperative Exam Primary Osteoarthritis Knee Right documented in this encounter Additional Health Concerns Assessment Noted Time PHQ-9 Depression Total Score: 5 10/15/19 24 7:44 AM CORPORATE COORDINATOR documented as of this encounter Care Teams Sealer Sander Relationship Specialty Start Date End Date Inge Petit APRN, C.N.P. [address] [place] [address] PCP - General Family Medicine 03/18/23 documented as of this encounter
--- OUTSIDE RECORDS SUMMARY | 2024-03-29 07:58 | XMS_ITS | Clinical Summary ---
Author Organization [facility] Address [address] [place] [address] Care Team Providers Care Oleomargarine Maker Name Role Phone Inge Petit APRN, C.NBrooke Primary Care Provi lenore Source Comments Patient records contain information from all sites at [facility]. For routine questions regarding patient records, call [phone] during business hours, M-F 8:00 AM - 5:00 PM Central Time. Record requests for emergency care only can be directed to [phone] at any time.[facility] Allergies Active Allergy Reactions Criticality Noted Date Comments Ibuprofen Edema (Reselect Reaction) 10/18/2020 In legs and blood pressure goes up Latex Edema, suggestive of allergic reaction, i.e., lip, tongue, or throat swelling High 03/13/2024 Swelling and rash and hands turn red in the gloves Rreccdcg-Jupyjvnglm-Krbfx yxin Rash Low 12/03/2014 Nickel Rash,Edema (Reselect [...] day. 180 tablet 3 10/15/2023 10/14/2024 Active acetaminophen (TylenoL) 500 mg capsule Take 1,000 mg by mouth daily as needed for pain. Active Active Problems Problem Noted Date Diagnosed Date Preoperative Exam 03/16/2024 Primary Osteoarthritis Knee Right 03/16/2024 Aftercare Total Hip Arthroplasty 04/22/2021 Overview: Total [...] Overview: Added automatically from request for surgery [id number] Morbid Severe Obesity Due To Excess Calories [...] Encounters Date Type Department Care Team Description 03/16/2024 11:30 AM CDT Office Visit Department of Orthopedic Surgery in [address] [phone] Denys Johnson M.D. Pain Knee Right 03/16/2024 9:42 AM CDT - 03/16/2024 11:59 PM CDT Hospital Encounter Department of Radiology, [facility], in [address] [address] Inge Petit, LC, C.N.P. Pain Knee Right Discharge Disposition: Home or Self Care 03/13/2024 10:00 AM CDT Clinical Communication Virtual Review in [address] [phone] Pre-visit Intake from Last 3 Months Immunizations Name Administration [...] ge 33 Heart Father Raz pacemaker, TAVR Hypertension Father Raz Other cancer Father Raz Hodgkins Diseas e Skin cancer Father Raz on going-wells Colon cancer Maternal Grandfather Citlaly d Breast cancer Maternal Grandmother Corazon 65 Clotting disorder Mother Puja d ue to PE in lung Obesity Mother Puja PE - Pulmonary embolism Mother Puja pass ed away age 48 Heart attack Uncle maternal uncle Relation Name Status Comments Brother Father Raz Alive Maternal Grandfather Citlaly Maternal Grandmother Corazon Mother Puja Uncle Social History Tobacco Use Types Packs/Day Years Used Date Smoking Tobacco: Never Smokeless Tobacco: Never Tobacco Cessation:Counseling Given: Not Answered Alcohol Use Standard Drinks/Week Comments Yes 1 (1 standard drink = 0.6 oz pur e alcohol) 1 drink every other week [facility] GetMyRxities Answer Date Recorded In the past 12 months has [employer], gas, oil, or water [employer] threatened to shut off services in your [...] week 03/05/2021 How often do you attend anglican or judaism serv ices? Never 03/05/2021 Do you belong to any clubs o r organizations such as anglican groups, unions, fraternal or athletic groups, or [...] Answer Date Recorded PHQ-2 Score 2 10/15/2023 [facility] - Occupational Stress Questionnaire Answer Date Recorded [...] your living situation today? I have a krzysztof place to live 10/11/2023 Education Answer Date Recorded What is the highest level of school you have completed or the highest degree you have received? Bachelor's degree (e.g., BA, AB, BS) 10/18/2020 Sex and Gender Information Value Date Recorded Sex Assigned at Female 07/07/2021 12:19 PM CDT Gender Identity Female 11/06/2020 10:39 AM LDR NURSE Sexual Orientation Straight 11/06/2020 10 :39 AM LDR NURSE Last Filed Vital Signs Vital Sign Reading [...] CDT Telemedicine Department of Patient Education in [place], [place] [address] [place] [address] Janel Kurtz P.A.-C., M.S. [address] [place] [address] 05/27/2024 3:00 PM CDT Office Visit Department of Family Medicine, [facility], in [place], [place] [address] [place] [phone] Inge Petit, LC, C.N.P. [address] [place] [phone] 06/02/2024 9:30 AM CDT Appointment Department of Laboratory Medicine and Pathology, [facility] in [place], [place] [address] [place] [phone] Janel Kurtz P.A.-C., M.S. [address] [place] [phone] 06/02/2024 10:15 AM CDT Appointment Department of Radiology, [facility] in [place], [place] [address] [place] [address] Janel Kurtz P.A.-C., M.S. [address] [place] [phone] 06/02/2024 11:15 AM CDT Office Visit Department of Orthopedic Surgery in [place], [place] [address] [place] [phone] Denys Johnson M.D. [address] [place] [phone] 06/03/2024 Hospital Encounter RST ROEI 02 4 AM ADMIT [address] [place] [phone] Denys Johnson M.D. [address] [place] [phone] Scheduled Procedures Name Priority Associated Diagnoses Date/Ti me ROBOTIC-ASSISTED KNEE TOTAL ARTHROPLASTY Preoperative Exam Primary Osteoarthritis Knee Right Health Maintenance Due Date Last Done Comments Colonoscopy After Positive Cologuard 1972 Hepatitis C Screening 1972 Fasting Glucose for Diabetes Screening 04/21/2022 04/21/2021, 04/14/2021, 04/09/2021, Additional history exists COVID-19 Vaccine (2022- season) 2023 07/31/2022, 08/07/2021, 01/13/2021, Additional history exists Hepatitis B Vaccines (2 of 2 - CpG (Heplisav) 2-dose series) 11/12/2023 10/15/2023 Zoster Vaccines (2 of 2) 12/10/2023 10/15/2023 Depression Monitoring (PHQ-9) 02/13/2024 10/15/2023 Influenza Vaccine (#1) 2024 , 07/23/2022, 07/26/2021, Additional history exists Mammogram 10/15/2024 10/15/2023, 10/24, 04/23/2014, Additional history exists Lipid (Cholesterol) Screening 10/24/2025 10/24/2020, 04/23/2014, 09/01/2012 Cervical Cancer Screening 10/15/20282023, 10/15/2023, 06/30/2018, Additional history exists DTaP,Tdap,and Td Vaccines (3 - Td or Tdap) 10/15/2033 10/15/2023, 04/23/2014 Cologuard Discontinued 10/21/2023 Colorectal Cancer Screening Discontinued Colorectal Cancer Surveillance Discontinued CT Colonography Discontinued CT Colonography Discontinued Colonoscopy Discontinued Colonoscopy Discontinued FIT Discontinued Pneumococcal vaccine (0-64 years) Aged Out No longer eligible based on patient's age to complete this topic Medical Devices Implanted Type Area Family Court Registrar Device Identifier Shelf Expiration Date Model / Serial / Lot Scrw Pnn Acet Ft 6.5x15 - [id number] Implanted:Qty : 1 on 04/03/2021 by Denys Johnson M.D. at [facility] Hardware e.g. pins/screws/ rods [employer] 01/20/2031 1217-15-500 / / [id number] Scrw Pnn Acet Ft 6.5x15 - [id number] Implanted:Qty : 1 on 04/03/2021 by Denys Johnson M.D. at [facility] Hardware e.g. pins/screws/ rods [employer] 01/20/2031 1217-15-500 / / [id number] Scrw Pnn Acet Ft 6.5x25 - [id number] Implanted:Qty : 1 on 04/03/2021 by Denys Johnson M.D. at [facility] Hardware e.g. pins/screws/ rods [employer] 01/20/2031 1217-25-500 / / [id number] Scrw Pnn Acet Ft 6.5x35 - [id number] Implanted:Qty : 1 on 04/03/2021 by Denys Johnson M.D. at [facility] Hardware e.g. pins/screws/ rods [employer] 01/20/2031 1217-35-500 / / [id number] Shll Acet Pnn Mhl Porct 58 - [id number] Implanted:Qty : 1 on 04/03/2021 by Denys Johnson M.D. at [facility] Hip Implant [employer] 01/20/2031 8 / / [id number] Lnr Alt 0d 36x58 - [id number] Implanted:Qty : 1 on 04/03/2021 by Denys Johnson M.D. at [facility] Hip Implant [employer] 12/21/2025 8 / / [id number] Hip Stm Actis Hofst Sz7 - [id number] Implanted:Qty : 1 on 04/03/2021 by Denys Johnson M.D. at [facility] Hip Implant [employer] 02/20/2031 [id number] / / [id number] Fem Hd Art Ez Crmc Justyn +5x36 - [id number] Implanted:Qty : 1 on 04/03/2021 by Denys Johnson M.D. at [facility] Hip Implant [employer] 12/21/2025 0 / / [id number] Procedures Procedure Name Priority Date/Time Associated Diagnosis Comments DX KNEE RIGHT WITH FLEXION AND PATELLA 4 VIEWS RAD - Routine (most inpatients and all outpatients) 03/16/2024 10:28 AM CDT Pain Knee Right COLOGUARD Routine 10/21/2023 10:00 PM LDR NURSE Screening Cancer Colon HPV WITH GENOTYPING, PCR, THINPREP Routine 10/15/2023 9:00 AM LDR NURSE BI BREAST SCREENING BILATERAL WITH TOMOSYNTHESIS RAD - Routine (most inpatients and all outpatients) 10/15/2023 8:04 AM LDR NURSE Screening Mammogram Breast Cancer EXTI BASIC METABOLIC PANEL, S/P Routine 04/21/2021 6:44 AM CDT LIPID PANEL, S Routine 10/24/2020 8:22 AM LDR NURSE Screening Lipid from Last 3 Months or Most Recently Relevant to Health Maintenance Results * DX Knee Right with Flexion and Patella 4 Views (03/16/2024 10:28 AM CDT) Anatomical Region Laterality Modality Lower Extremity, Knee, Muscu loskeletal RST LOS, Musculoskeletal ARZ LOS, Muskuloskeletal FLA LOS Right Digit al Radiography Impressions 03/16/2024 11:46 AM CDT Marked hypertrophic degenerative arthritic changes of the right knee with severe joint space loss of the patellofemoral and lateral compartments. Moderate arthritic changes of the medial compartment. Genu valgus deformity. Small joint effusion. Narrative 03/16/2024 11:46 AM CDT EXAM: ??DX KNEE RIGHT WITH FLEXION AND PATELLA 4 VIEWS Procedure Note Sivan Rangel M.D. - 03/16/2024 EXAM: DX KNEE RIGHT WITH FLEXION AND PATELLA 4 VIEWS IMPRESSION: Marked hypertrophic degenerative arthritic changes of the right knee withsevere joint space loss of the patellofemoral and lateral compartments.Moderate arthritic changes of the medial compartment. Genu valgusdeformity. Small joint effusion. Inge K Marisabel PLATT C.N.P. IMG DIAGNOS TIC IMAGING PROCEDURES * (ABNORMAL) Cologuard - Sent Out Lab (10/21/2023 10:00 PM LDR NURSE) Result Positive( A) Negative 11/01/2023 3:57 AM LDR NURSE EXLI Comment: POSITIVE TEST RESULT. A positive [...] (Maren Pereira al, N Engl J Med 2014;370(14):6943-6318.) Cologuard may produce a false negative or false positive result (no colorectal cancer or precancerous polyp present at colonoscopy follow up). A negative Cologuard test result does not guarantee the absence of CRC or advanced adenoma (pre-cancer). The current Cologuard screening interval is every 3 years. ([place] [employer] Society and U.S. Multi-Society Task Force). Cologuard performance data in a 10,000 patient pivotal study using colonoscopy as the reference method can be accessed at the following location: www.exactlabs.com/results. Additional description of the Cologuard test process, warnings and precautions can be found at www.cologuard.com. Stool (Stool) 10/21/2023 10: 00 PM LDR NURSE 10/23/2023 1:42 PM LDR NURSE Radhames Phan APRN.N.P. LAB BODY FL UIDS AND STOOLS ORDERABLES Performing Organization Address City/[facility] Co de Phone Number [facility] [address] [place] [phone] EXLI [employer] [address] [place] [address], [address] [place] [address] * HPV with Genotyping, PCR, ThinPrep (10/15/2023 9:00 AM LDR NURSE) HPV with Genotyping, ThinPrep, PCR Negative Negative 10/16/2023 3:24 PM LDR NURSE MKTO Comment: Negative for high risk HPV [...] correlated with patient's history, clinical presentation, and STOCK RANCH SUPERVISOR cytology report. 10/15/2023 9:00 AM LDR NURSE 10/15/2023 2:06 PM LDR NURSE Inge Petit APRN, Radhames.N.P. LAB MICROBI OLOGY - GENERAL ORDERABLES Performing Organization Address City/[facility]/ZIP Co de Phone Number [facility] [address] [place] [address], [facility] MKTO [facility] [address] * BI Breast Screening Bilateral with Tomosynthesis (10/15/2023 8:04 AM LDR NURSE) Anatomical Region Laterality Modality Breast, Breast Imaging RST L OS, Breast Imaging ARZ LOS, Breast Imaging FLA LOS Bilateral Mammography Impressions 10/15/2023 8:33 AM LDR NURSE Negative. RECOMMENDATION: ??Annual Screening Mammogram ASSESSMENT: ??BI-RADS: 1: Negative. Narrative 10/15/2023 8:33 AM LDR NURSE EXAM: ??BI BREAST SCREENING BILATERAL WITH TOMOSYNTHESIS [...] Mammogram ASSESSMENT: BI-RADS: 1: Negative. Inge Petit APRN C.N.P. [facility] BI PROC EDURES * Lipid Panel (10/24/2020 8:22 AM LDR NURSE) Cholesterol, Total 184 mg/dL 2020 9:01 AM LDR NURSE OWAT Comment: ----REFERENCE VALUE---- Desirable: < 200 Borderline high: 200 - 239 High: > or = 240 Triglycerides 37 mg/dL 10/24/2020 9:01 AM LDR NURSE OWAT Comment: ----REFERENCE VALUE---- Normal: <150 Borderline high: 150-199 High: 200-499 Very high: > or =500 Cholesterol, HDL 90 >=50 mg/dL 10/24/19 9:01 AM LDR NURSE OWAT Calculated LDL 87 mg/dL 10/24/2020 9:01 AM LDR NURSE OWAT Comment: ----REFERENCE VALUE---- Desirable: <100 Above Desirable: 100-129 Borderline high: 130-159 High: 160-189 Very high: > or =190 Cholesterol, Non-HDL, Calculated 94 mg/dL 10/24/2020 9:01 AM LDR NURSE OWAT Comment: ----REFERENCE VALUE---- Desirable: <130 Above Desirable: 130-159 Borderline high: 160-189 High: 190-219 Very high: > or =220 Blood (Blood, Venous) 10/24/2020 8:22 AM LDR NURSE 10/24/2020 8:25 AM LDR NURSE Evelyn Phan APRNNSylviaPSylvia LAB BLOOD A DD-ON [facility] [address] [place] [address], [facility] OWAT [facility] in [place] [address] [place] [address] from Last 3 Months or Most Recently Relevant to Health Maintenance Advance Directives For more information, please contact: [phone] Documents on File Type Date Recorded Patient Sanitation Associate Expl anation Advance Directives 04/03/2021 7:26 AM POA for Healthcare * Full Code (Latest Code Status on File) Date Activated Date Inactivated Comments 04/03/2021 2:47 PM 04/07/2021 12:44 PM Question Answer Comments Full Code: Discussed * Full Code Date Activated Date Inactivated Comments 04/03/2021 7:39 AM 04/03/2021 2:47 PM Question Answer Comments Full Code: Discussed Healthcare Agents on File Name Relationship Healthcare Agent [facility] Communication Lydia Whitley Daughter Health Care Agent Chantel Mccullough Relative First Alternate Health Care Agent Care Teams Oleomargarine Maker Relationship Specialty Start Date End Date Inge Petit APRN, C.N.P. [address] [place] [phone] PCP - General Family Medicine 03/18/23
--- OUTSIDE RECORDS SUMMARY | 2024-03-29 07:58 | XMS_ITS | Referral Summary ---
Author Organization [facility] Address [address] [place] [address] Care Team Providers Care Fire Official Name Role Phone Inge Petit APRN, C.N.P. Primary Care Provi lenore Source Comments Patient records contain information from all sites at [facility]. For routine questions regarding patient records, call [phone] during business hours, M-F 8:00 AM - 5:00 PM Central Time. Record requests for emergency care only can be directed to [phone] at any time.[facility] Encounters Date Type Department Care Team Description 03/16/2024 11:30 AM CDT Office Visit Department of Orthopedic Surgery in [place], [place] [address] [place] [phone] Denys Johnson M.D. Pain Knee Right 03/16/2024 9:42 AM CDT - 03/16/2024 11:59 PM CDT Hospital Encounter Department of Radiology, [facility], in [place], [place] [address] [place] [phone] Inge Petit APRN, C.N.P. Pain Knee Right Discharge Disposition: Home or Self Care 03/13/2024 10:00 AM CDT Clinical Communication Virtual Review in [place], [place] 200 [place] [address] Pre-visit Intake from Last 3 Months Allergies Active Allergy Reactions Criticality Noted Date Comments Ibuprofen Edema (Reselect Reaction) 10/18/2020 In legs and blood pressure goes up Latex Edema, suggestive of allergic reaction, i.e., lip, tongue, or throat swelling High 03/13/2024 Swelling and rash and hands turn red in the gloves Aqsbfjrg-Tiirjirnaa-Adrxv yxin Rash Low 12/03/2014 Nickel Rash,Edema (Reselect [...] Overview: Added automatically from request for surgery [id number] Morbid Severe Obesity Due To Excess Calories [...] e alcohol) 1 drink every other week [facility] Utilities Answer Date Recorded In the past 12 months has e [employer], gas, oil, or water company threatened to [...] week 03/05/2021 How often do you attend mandaen or baptism serv ices? Never 03/05/2021 Do you belong to any clubs o r organizations such as mandaen groups, unions, fraternal or athletic groups, or [...] Answer Date Recorded PHQ-2 Score 2 10/15/2023 [facility] of Occupat ional Health - Occupational Stress [...] CDT Gender Identity Female 11/06/2020 10:39 AM DIRECTOR OF CAREER SERVICES Sexual Orientation Straight 11/06/2020 10 :39 AM DIRECTOR OF CAREER SERVICES Last Filed Vital Signs Vital Sign Reading [...] CDT Telemedicine Department of Patient Education in [place], [place] [address] [place] [phone] Janel Kurtz P.A.-C., M.S. [address] [place] [phone] 05/27/2024 3:00 PM CDT Office Visit Department of Family Medicine, [facility], in [place], [place] [address] [place] [phone] Inge Petit APRN, C.N.P. [address] [place] [phone] 06/02/2024 9:30 AM CDT Appointment Department of Laboratory Medicine and Pathology, [facility], in [place], [place] [address] [place] [phone] Janel Kurtz P.A.-C., M.S. [address] [place] [phone] 06/02/2024 10:15 AM CDT Appointment Department of Radiology, [facility], in [place], [place] [address] [place] [address] Janel Kurtz P.A.-C., M.S. [address] [place] [phone] 06/02/2024 11:15 AM CDT Office Visit Department of Orthopedic Surgery in [place], [place] [address] [place] [phone] Denys Johnson M.D. [address] [place] [phone] 06/03/2024 Hospital Encounter [facility] 02 4 AM ADMIT [address] [place] [phone] Denys Johnson M.D. [address] [place] [phone] Scheduled Procedures Name Priority Associated Diagnoses Date/Ti me ROBOTIC-ASSISTED KNEE TOTAL ARTHROPLASTY Preoperative Exam Primary Osteoarthritis Knee Right Medical Devices Implanted Type Area Rail Car Loader Device Identifier Shelf Expiration Date Model / Serial / Lot Scrw Pnn Acet Ft 6.5x15 - [id number] Implanted:Qty : 1 on 04/03/2021 by Denys Johnson M.D. at [facility] Hardware e.g. pins/screws/ rods Depuy Synthes 01/20/2031 1217-15-500 / / [id number] Scrw Pnn Acet Ft 6.5x15 - [id number] Implanted:Qty : 1 on 04/03/2021 by Denys Johnson M.D. at [facility] Hardware e.g. pins/screws/ rods [employer]ynthes 01/20/2031 1217-15-500 / / [id number] Scrw Pnn Acet Ft 6.5x25 - [id number] Implanted:Qty : 1 on 04/03/2021 by Denys Johnson M.D. at [facility] Hardware e.g. pins/screws/ rods [employer]s 01/20/2031 1217-25-500 / / [id number] Scrw Pnn Acet Ft 6.5x35 - [id number] Implanted:Qty : 1 on 04/03/2021 by Denys Johnson M.D. at [facility] Hardware e.g. pins/screws/ rods [employer] 01/20/2031 1217-35-500 / / [id number] Shll Acet Pnn Mhl Porct 58 - [id number] Implanted:Qty : 1 on 04/03/2021 by Denys Johnson M.D. at [facility] Hip Implant [employer]ynthes 01/20/2031 8 / / [id number] Lnr Alt 0d 36x58 - [id number] Implanted:Qty : 1 on 04/03/2021 by Denys Johnson M.D. at [facility] Hip Implant [employer] 12/21/2025 8 / / [id number] Hip Stm Actis Hofst Sz7 - [id number] Implanted:Qty : 1 on 04/03/2021 by Denys Johnson M.D. at [facility] Hip Implant [employer]ynthes 02/20/2031 [id number] / / [id number] Fem Hd Art Ez Crmc Justyn +5x36 - [id number] Implanted:Qty : 1 on 04/03/2021 by Denys Johnson M.D. at [facility] Hip Implant [employer]s 12/21/2025 0 / / [id number] Procedures Procedure Name Priority Date/Time Associated Diagnosis Comments DX KNEE RIGHT WITH FLEXION AND PATELLA 4 VIEWS RAD - Routine (most inpatients and all outpatients) 03/16/2024 10:28 AM CDT Pain Knee Right COLOGUARD Routine 10/21/2023 10:00 PM DIRECTOR OF CAREER SERVICES Screening Cancer Colon HPV WITH GENOTYPING, PCR, THINPREP Routine 10/15/2023 9:00 AM DIRECTOR OF CAREER SERVICES BI BREAST SCREENING BILATERAL WITH TOMOSYNTHESIS RAD - Routine (most inpatients and all outpatients) 10/15/2023 8:04 AM DIRECTOR OF CAREER SERVICES Screening Mammogram Breast Cancer EXTI BASIC METABOLIC PANEL, S/P Routine 04/21/2021 6:44 AM CDT LIPID PANEL, S Routine 10/24/2020 8:22 AM DIRECTOR OF CAREER SERVICES Screening Lipid from Last 3 Months or [...] compartment. Genu valgusdeformity. Small joint effusion. Inge Petit APRN, C.N.P. IMG DIAGNOS TIC IMAGING PROCEDURES * (ABNORMAL) Cologuard - Sent Out Lab (10/21/2023 10:00 PM DIRECTOR OF CAREER SERVICES) Result Positive( A) Negative 11/01/2023 3:57 AM DIRECTOR OF CAREER SERVICES EXLI Comment: POSITIVE TEST RESULT. A positive [...] screened with both Cologuard and colonoscopy. (Maren Lin et al, N Engl J Med 2014;370(14):8857-6690.) Cologuard may produce a false negative or false positive result (no colorectal cancer or precancerous polyp present at colonoscopy follow up). A negative Cologuard test result does not guarantee the absence of CRC or advanced adenoma (pre-cancer). The current Cologuard screening interval is every 3 years. ([place] [employer] Society and U.S. Multi-Society Task Force). Cologuard performance data in a 10,000 patient pivotal study using colonoscopy as the reference method can be accessed at the following location: www.Publicate.Bambisa/results. Additional description of the Cologuard test process, warnings and precautions can be found at www.PBworksrd.com. Stool (Stool) 10/21/2023 10: 00 PM DIRECTOR OF CAREER SERVICES 10/23/2023 1:42 PM DIRECTOR OF CAREER SERVICES Inge Petit APRN, C.N.P. LAB BODY FL UIDS AND STOOLS ORDERABLES [employer] [address] [place] [address] EXLI [facility] [address] [place] [address], [address] [place] [address] * HPV with Genotyping, PCR, ThinPrep (10/15/2023 9:00 AM DIRECTOR OF CAREER SERVICES) HPV with Genotyping, ThinPrep, PCR Negative Negative 10/16/2023 3:24 PM DIRECTOR OF CAREER SERVICES MKTO Comment: Negative for high risk HPV [...] correlated with patient's history, clinical presentation, and [employer] cytology report. 10/15/2023 9:00 AM DIRECTOR OF CAREER SERVICES 10/15/2023 2:06 PM DIRECTOR OF CAREER SERVICES Inge Petit APRN, C.N.P. LAB MICROBI OLOGY - GENERAL ORDERABLES Performing Organization Address City/[facility]/ZIP Co de Phone Number [facility] [address] [place] [address], [facility] MKTO [facility] [address] * BI Breast Screening Bilateral with Tomosynthesis (10/15/2023 8:04 AM DIRECTOR OF CAREER SERVICES) Anatomical Region Laterality Modality Breast, Breast Imaging RST L OS, Breast Imaging ARZ LOS, Breast Imaging FLA LOS Bilateral Mammography Impressions 10/15/2023 8:33 AM DIRECTOR OF CAREER SERVICES Negative. RECOMMENDATION: ??Annual Screening Mammogram ASSESSMENT: ??BI-RADS: 1: Negative. Narrative 10/15/2023 8:33 AM DIRECTOR OF CAREER SERVICES EXAM: ??BI BREAST SCREENING BILATERAL WITH TOMOSYNTHESIS [...] ASSESSMENT: BI-RADS: 1: Negative. Inge Petit APRN C.N.PSylvia [facility] PROC EDURES * Lipid Panel (10/24/2020 8:22 AM DIRECTOR OF CAREER SERVICES) Cholesterol, Total 184 mg/dL 2020 9:01 AM DIRECTOR OF CAREER SERVICES OWAT Comment: ----REFERENCE VALUE---- Desirable: < 200 Borderline high: 200 - 239 High: > or = 240 Triglycerides 37 mg/dL 10/24/2020 9:01 AM DIRECTOR OF CAREER SERVICES OWAT Comment: ----REFERENCE VALUE---- Normal: <150 Borderline high: 150-199 High: 200-499 Very high: > or =500 Cholesterol, HDL 90 >=50 mg/dL 10/24/19 9:01 AM DIRECTOR OF CAREER SERVICES OWAT Calculated LDL 87 mg/dL 10/24/2020 9:01 AM DIRECTOR OF CAREER SERVICES OWAT Comment: ----REFERENCE VALUE---- Desirable: <100 Above Desirable: 100-129 Borderline high: 130-159 High: 160-189 Very high: > or =190 Cholesterol, Non-HDL, Calculated 94 mg/dL 10/24/2020 9:01 AM DIRECTOR OF CAREER SERVICES OWAT Comment: ----REFERENCE VALUE---- Desirable: <130 Above Desirable: 130-159 Borderline high: 160-189 High: 190-219 Very high: > or =220 Blood (Blood, Venous) 10/24/2020 8:22 AM DIRECTOR OF CAREER SERVICES 10/24/2020 8:25 AM DIRECTOR OF CAREER SERVICES Inge Petit APRN, C.N.P. LAB BLOOD A DD-ON [facility] [address] [place] [address], [place] OWAT [facility] in [place] [address] [place] [address] from Last 3 Months or Most Recently Relevant to Health Maintenance Advance Directives For more information, please contact: [phone] Documents on File Type Date Recorded Patient Spd Tech Expl anation Advance Directives 04/03/2021 7:26 AM POA for Healthcare * Full Code (Latest Code Status on File) Date Activated Date Inactivated Comments 04/03/2021 2:47 PM 04/07/2021 12:44 PM Question Answer Comments Full Code: Discussed * Full Code Date Activated Date Inactivated Comments 04/03/2021 7:39 AM 04/03/2021 2:47 PM Question Answer Comments Full Code: Discussed Healthcare Agents on File Name Relationship Healthcare Agent Segunoh renee Whitley Daughter Health Care Agent Chantel Mccullough Relative First Alternate Health Care Agent Care Teams Fire Official Relationship Specialty Start Date End Date Inge Petit APRN, C.N.P. [address] [place] [phone] PCP - General Family Medicine 03/18/23
--- OUTSIDE RECORDS SUMMARY | 2024-03-29 07:58 | XMS_ITS ---
Author Organization [facility] Address [address] [place] [address] Care Team Providers Care Traffic Engineering Director Name Role Phone Unavailable Unavailable Unavailable Surgery Details Not on file Complications Check Surgery Details section. Procedure Estimated Blood Loss Check Surgery Details section. Procedure Findings Check Surgery Details section. Procedure Specimens Taken Check Surgery Details section.
--- OUTSIDE RECORDS SUMMARY | 2024-03-29 07:59 | XMS_ITS | Encounter Summary ---
Author Organization [facility] Address [address] [place] [address] Care Team Providers Care Aerial Crop Duster Name Role Phone Inge Petit APRN C.NSylviaPSylvia Primary Care Provi lenore Reason for Visit * Reason Onset Date Comments Pre-visit Intake 03/13/2024 Encounter Details Date Type Department Care Team (Latest Contact Info) Description 03/13/2024 10:00 AM CDT Clinical Communication Virtual Review in [place], [place] 200 [place] [address] Pre-visit Intake Social History Tobacco Use Types Packs/Day Years Used Date Smoking Tobacco: Never Smokeless Tobacco: Never Tobacco Cessation:Counseling Given: Not Answered Alcohol Use Standard Drinks/Week Comments Yes 1 (1 standard drink = 0.6 oz pur e alcohol) 1 drink every other week [facility] Utilities Answer Date Recorded In the past 12 months has [employer], oil, or water [employer] threatened to shut off services in your [...] week 03/05/2021 How often do you attend restoration or adventist serv ices? Never 03/05/2021 Do you belong to any clubs o r organizations such as restoration groups, unions, fraternal or athletic groups, or [...] Answer Date Recorded PHQ-2 Score 2 10/15/2023 [facility] of Occupat ional [facility] - Occupational Stress Questionnaire Answer Date Recorded [...] your living situation today? I have a [facility] place to live 10/11/2023 Education Answer Date Recorded What is the highest level of school you have completed or the highest degree you have received? Bachelor's degree (e.g., BA, AB, BS) 10/18/2020 Sex and Gender Information Value Date Recorded Sex Assigned at Female 07/07/2021 12:19 PM CDT Gender Identity Female 11/06/2020 10:39 AM HEALTH ECONOMIST Sexual Orientation Straight 11/06/2020 10 :39 AM HEALTH ECONOMIST documented as of this encounter Plan of Treatment Upcoming Encounters Date Type Department Care Team (Late st Contact Info) Description 05/19/2024 3:00 PM CDT Telemedicine Department of Patient Education in [place], [place] 200 [place] [address] Janel Kurtz P.A.-C., M.S. 200 [place] [phone] 05/27/2024 3:00 PM CDT Office Visit Department of Family Medicine, [facility], in [place], [place] [address] [place] [phone] Inge Petit, RESIDENTIAL LIVING ASSISTANT, C.N.P. [address] [place] [phone] 06/02/2024 9:30 AM CDT Appointment Department of Laboratory Medicine and Pathology, [facility] in [place], [place] [address] [place] [phone] Janel Kurtz P.A.-C., M.S. [address] [place] [phone] 06/02/2024 10:15 AM CDT Appointment Department of Radiology, [place], [place] [address] [place] [phone] Janel Kurtz P.A.-C., M.S. [address] [place] [phone] 06/02/2024 11:15 AM CDT Office Visit Department of Orthopedic Surgery in [address] [phone] Denys Johnson M.D. [address] [place] [phone] 06/03/2024 Hospital Encounter [facility] 02 4 AM ADMIT [address] [place] [phone] Denys Johnson M.D. [address] [place] [phone] Scheduled Procedures Name Priority Associated Diagnoses Date/Ti ut ROBOTIC-ASSISTED KNEE TOTAL ARTHROPLASTY Preoperative Exam Primary Osteoarthritis Knee Right documented as of this encounter Visit Diagnoses Not on filedocumented in this encounter Additional Health Concerns Assessment Noted Time PHQ-9 Depression Total Score: 5 10/15/19 24 7:44 AM HEALTH ECONOMIST documented as of this encounter Care Teams Aerial Crop Duster Relationship Specialty Start Date End Date Inge Petit APRN, C.N.P. [address] [place] [phone] PCP - General Family Medicine 03/18/23 documented as of this encounter
--- OUTSIDE RECORDS SUMMARY | 2024-03-29 07:59 | XMS_ITS | Encounter Summary ---
Author Organization [facility] Address [address] [place] [address] Care Team Providers Care Cloth Sander Name Role Phone Igne Petit APRN, C.N.P. Primary Care Provi lenore Reason for Referral * Outpatient (Routine) - Closed Specialty Diagnoses / Procedures Referred By Contac t Referred To Contact Diagnoses Pain Knee Right Procedures DX Knee Right with Flexion and Patella 4 Views Inge Petit APRN, C.N.P. [address] [place] [phone] [facility] Referral ID Status Reason Start Date Expiration Date Visits Re quested Visits Authorized [id number] Closed 12/13/2023 12/12/2024 1 1 Reason for Visit * Outpatient (Routine) - Closed Specialty Diagnoses / Procedures Referred By Contac t Referred To Contact Diagnoses Pain Knee Right Procedures DX Knee Right with Flexion and Patella 4 Views Inge Petit APRN, C.N.P. [address] [place] [phone] [facility] Referral ID Status Reason Start Date Expiration Date Visits Re quested Visits Authorized [id number] Closed 12/13/2023 12/12/2024 1 1 Encounter Details Date Type Department Care Team (Latest Contact Info) Description 03/16/2024 9:42 AM CDT - 03/16/2024 11:59 PM CDT Hospital Encounter Department of Radiology, [facility], in [place], [place] [address] [place] [address] Inge Petit, LC, C.N.P. [address] [place] [phone] Pain Knee Right Discharge Disposition: Home or Self Care Social History Tobacco Use Types Packs/Day Years Used Date Smoking Tobacco: Never Smokeless Tobacco: Never Alcohol Use Standard Drinks/Week Comments Yes 1 (1 standard drink = 0.6 oz pur e alcohol) 1 drink every other week [facility] Utilities Answer Date Recorded In the past 12 months has e [employer], gas, oil, or water company threatened to [...] week 03/05/2021 How often do you attend spiritism or adventist serv ices? Never 03/05/2021 Do you belong to any clubs o r organizations such as spiritism groups, unions, fraternal or athletic groups, or [...] Answer Date Recorded PHQ-2 Score 2 10/15/2023 [facility] of Occupat ional Health - Occupational [...] CDT Gender Identity Female 11/06/2020 10:39 AM NURSE EPIDEMIOLOGIST Sexual Orientation Straight 11/06/2020 10 :39 AM NURSE EPIDEMIOLOGIST documented as of this encounter Medications at Time of Discharge Medication Sig Dispensed Refills Start Date End Date acetaminophen (TylenoL) 500 mg capsule Take 1,000 mg by mouth daily as needed for pain. buPROPion (WELLBUTRIN SR) 150 mg 12 hr tabletIndications:Anxie ty,Depression Major Recurrent Moderate (HCC) Take 1 tablet (150 mg total) by mouth 2 (two) times a day. 180 tablet 3 10/15/2023 10/14/2024 diphenhydrAMINE (BENADRYL) 25 mg tablet Take 1 tablet (25 mg total) by mouth at bedtime as needed for sleep. 30 tablet 1 04/09/2021 multivitamin tablet Take 1 tablet by mouth. naproxen sodium 220 mg capsule Take 1 tablet by mouth as needed. 07/06/2021 documented as of this encounter Plan of Treatment Upcoming Encounters Date Type Department Care Team (Late st Contact Info) Description 05/19/2024 3:00 PM CDT Telemedicine Department of Patient Education in [place], [place] [address] [place] [phone] Janel Kurtz P.A.-C., M.S. 200 [place] [phone] 05/27/2024 3:00 PM CDT Office Visit Department of Family Medicine, [facility], in [place], [place] [address] [place] [phone] Inge Petit APRN, C.N.P. [address] [place] [phone] 06/02/2024 9:30 AM CDT Appointment Department of Laboratory Medicine and Pathology, [facility] in [place], [place] [address] [place] [phone] Janel Kurtz P.A.-C., M.S. [address] [place] [phone] 06/02/2024 10:15 AM CDT Appointment Department of Radiology, [facility] in [place], [place] [address] [place] [phone] Janel Kurtz P.A.-C., M.S. [address] [place] [phone] 06/02/2024 11:15 AM CDT Office Visit Department of Orthopedic Surgery in [place], [place] [address] [place] [phone] Denys Johnson M.D. [address] [place] [phone] 06/03/2024 Hospital Encounter [facility] 02 4 AM ADMIT [address] [place] [phone] Denys Johsnon M.D. [address] [place] [phone] Scheduled Procedures Name Priority Associated Diagnoses Date/Ti me ROBOTIC-ASSISTED KNEE TOTAL ARTHROPLASTY Preoperative Exam Primary Osteoarthritis Knee Right documented as of this encounter Procedures Procedure Name Priority Date/Time Associated Diagnosis Comments DX KNEE RIGHT WITH FLEXION AND PATELLA 4 VIEWS RAD - Routine (most inpatients and all outpatients) 03/16/2024 10:28 AM CDT Pain Knee Right documented in this encounter Results * DX Knee Right with Flexion [...] APRN, C.N.P. IMG DIAGNOS TIC IMAGING PROCEDURES documented in this encounter Visit Diagnoses Diagnosis Pain Knee Right Preoperative Exam Primary Osteoarthritis Knee Right documented in this encounter Additional Health Concerns Assessment Noted Time PHQ-9 Depression Total Score: 5 10/15/19 24 7:44 AM NURSE EPIDEMIOLOGIST documented as of this encounter Care Teams Cloth Sander Relationship Specialty Start Date End Date Inge Petit APRN, C.N.P. [address] [place] [phone] PCP - General Family Medicine 03/18/23 documented as of this encounter
--- OUTSIDE RECORDS SUMMARY | 2024-03-29 07:59 | XMS_ITS | Encounter Summary ---
Author Organization [facility] Address [address] [place] [address] Care Team Providers Care Metallurgical Tester Name Role Phone Inge Petit APRN, C.N.P. Primary Care Provi lenore Encounter Details Date Type Department Care Team (Late st Contact Info) Description 12/12/2023 Clinical Communication Department of Family Medicine, [facility], in [place], [place] [address] [place] [phone] Inge Petit APRN, C.N.P. [address] [place] [phone] Social History Tobacco Use Types Packs/Day Years Used Date Smoking Tobacco: Never Smokeless Tobacco: Never Alcohol Use Standard Drinks/Week Comments Not Currently 0 (1 standard drink = 0.6 oz pur e alcohol) [facility] Utilities Answer Date Recorded In the [...] How often do you attend restorationism or denominational serv ices? Never 03/05/2021 Do you belong [...] your living situation today? I have a [facility] place to live 10/11/2023 Education Answer Date Recorded What is the highest level of school you have completed or the highest degree you have received? Bachelor's degree (e.g., BA, AB, BS) 10/18/2020 Sex and Gender Information Value Date Recorded Sex Assigned at Female 07/07/2021 12:19 PM CDT Gender Identity Female 11/06/2020 10:39 AM [employer] Sexual Orientation Straight 11/06/2020 10 :39 AM [employer] documented as of this encounter Plan of Treatment Upcoming Encounters Date Type Department Care Team (Late st Contact Info) Description 05/19/2024 3:00 PM CDT Telemedicine Department of Patient Education in [place], [place] [address] [place] [phone] Janel Kurtz P.A.-C., M.S. [address] [place] [phone] 05/27/2024 3:00 PM CDT Office Visit Department of Family Medicine, [facility], in [place], [place] [address] [place] [phone] Inge Petit APRN, CSylviaNSylviaP. [address] [phone] 06/02/2024 9:30 AM CDT Appointment Department of Laboratory Medicine and Pathology, [facility] in [place], [place] [address] [place] [phone] Janel Kurtz P.A.-C., M.S. [address] [place] [phone] 06/02/2024 10:15 AM CDT Appointment Department of Radiology, [facility] in [place], [place] [address] [place] [phone] Janel Kurtz P.A.-C., M.S. [address] [place] [phone] 06/02/2024 11:15 AM CDT Office Visit Department of Orthopedic Surgery in [place], [place] [address] [place] [phone] Denys Johnson M.D. [address] [place] [phone] 06/03/2024 Hospital Encounter [facility] 02 4 AM ADMIT [address] [place] [phone] Denys Johnson M.D. [address] [place] [phone] Scheduled Procedures Name Priority Associated Diagnoses Date/Ti me ROBOTIC-ASSISTED KNEE TOTAL ARTHROPLASTY Preoperative Exam Primary Osteoarthritis Knee Right documented as of this encounter Visit Diagnoses Not on filedocumented in this encounter Additional Health Concerns Assessment Noted Time PHQ-9 Depression Total Score: 5 10/15/19 24 7:44 AM [employer] documented as of this encounter Care Teams Metallurgical Tester Relationship Specialty Start Date End Date nIge Petit APRN, C.N.P. [address] [place] [phone] PCP - General Family Medicine 03/18/23 documented as of this encounter
== END 2024-03-27 11:36 | disposition home or self-care (01) ==
LOC: NFLDREF 03-29 07:56
PROVIDERS: Visit Provider Physician Assistant
DX: N39.0 Urinary tract infection, site not specified (principal); B96.20 Unspecified Escherichia coli [E. coli] as the cause of diseases classified elsewhere
CPT/HCPCS: 87086; 87186